=== PATIENT | female | born 1985 | race Caucasian/White ===

== ENCOUNTER 2022-02-24 13:05 | Outpatient (CLI) | payer MEDICAID, SELFPAY ==
[2022-02-24 15:50] LABS: HIV 1/2/P24 Combo Screen* Negative (Negative)
[2022-02-24 15:58] LABS: Hepatitis C Virus Antibody* Negative (Negative)
[2022-02-24 16:21] LABS: Chlamydia DNA Amplified* NOT DETECTED (No Detected); GC DNA Amplified* NOT DETECTED (No Detected)
[2022-02-27 00:45] LABS: Rapid Plasma Reagin (RPR) Reactive (Non Reactive)
[2022-02-28 17:09] LABS: Treponema pallidum AbTP-PA Non Reactive (Non Reactive)
== END 2022-02-24 13:06 | disposition home or self-care (01) ==
PROVIDERS: PCP Family Medicine; Visit Provider Obstetrics & Gynecology
DX: Z01.419 Encounter for gynecological examination (general) (routine) without abnormal findings (principal); Z87.42 Personal history of other diseases of the female genital tract; Z11.3 Encounter for screening for infections with a predominantly sexual mode of transmission
CPT/HCPCS: 86592; 86593; 86703; 86780; 86803; 87491; 87591

== ENCOUNTER 2022-03-06 13:32 | Outpatient (CLI) | payer MEDICAID, SELFPAY ==
--- NOTE | 2022-03-06 13:45 | MR_ITS ---
[address] [address] Phone:?[phone] Fax:?[phone] Referring Physician Information: Tita Campbell [address] [facility] [address] Phone:?[phone] Fax:?[phone] Patient:?Jeny Carter D.O.B:?1985 Sex:?Female Phone:?[phone] [facility] MRN:?[id number] Exam Date:?03/06/2022 ? EXAM: MRI OF THE RIGHT SHOULDER CLINICAL INFORMATION: The patient is a 36-year-old with right shoulder pain. Evaluate rotator cuff. Evaluate biceps. Evaluate for adhesive capsulitis. PRIOR SURGERY: None reported. COMPARISON STUDIES: There are no prior studies available for comparison. TECHNICAL INFORMATION: Using a 1.5T MR scanner and a localizing shoulder surface coil: 3.0 mm?coronal obliques: PD, T2, STIR 3.0 mm?sagittal obliques: PD, T2 3.0 mm?axials: PD, T2 FINDINGS: Articular/Extraarticular collections: Effusion: None. Subacromial/subdeltoid: No evidence for bursitis. Subcoracoid: No evidence for bursitis. Osseous structures: Proximal humerus: No evidence for bony injury to the proximal humerus can be seen. There is no evidence for greater tuberosity fracture. No Hill-Sachs or reverse Hill-Sachs deformity is seen. Glenoid: No acute bony abnormality of the glenoid fossa or glenoid neck can be seen. Acromioclavicular joint: Mild changes of acromioclavicular joint arthrosis are present. Coracoacromial arch: Acromion morphology: Type II. No evidence for os acromiale. Acromiohumeral space: Within normal limits. Coracohumeral space: Within normal limits. Rotator cuff and deltoid: Supraspinatus: Mild changes of supraspinatus tendinosis are present. There is no evidence for full or partial-thickness tearing. No atrophic changes of the supraspinatus muscle belly are identified. Infraspinatus: No evidence for tendinosis, tearing, or associated muscle belly atrophy. Teres minor: No evidence for tendinosis, tearing, or associated muscle belly atrophy. Subscapularis: Mild subscapularis tendinosis can be seen. There is no evidence for full or partial-thickness tearing. No atrophic changes of the subscapularis muscle belly are noted. Deltoid: No evidence for strain or tearing. Biceps tendon: The intra-articular and biceps sulcus portions of the biceps tendon are normal. There is no evidence for rupture, dislocation, or subluxation. Glenohumeral joint and labrum: Articular Cartilage: No chondral injuries along the articular surfaces of the glenohumeral articulation can be seen. No osteoarthritic changes are identified. Labrum: The anterior, posterior, superior, and inferior portions of the labrum appear intact. No evidence for paralabral ganglion cyst formation can be seen. Capsular Soft Tissues: Nonspecific thickening of the capsular structures can be seen in the region of the axillary recess. The findings may relate to changes of adhesive capsulitis. CONCLUSION: 1. Mild supraspinatus and subscapularis tendinosis. No full or partial-thickness rotator cuff tearing is seen. 2. Mild acromioclavicular joint arthrosis. 3. No definite injuries to the glenoid labrum or long head of the biceps can be seen. 4. No osteoarthritic changes of the glenohumeral articulation are present. 5. Nonspecific capsular thickening involving the axillary recess, possibly related to adhesive capsulitis. [facility] Electronically signed on 03/07/2022 7:59:00 AM by Bryce Infante M.D.
== END 2022-03-06 13:33 | disposition home or self-care (01) ==
LOC: MRI 13:33
PROVIDERS: PCP Family Medicine; Visit Provider Physician Assistant
DX: M25.511 Pain in right shoulder (principal); M19.011 Primary osteoarthritis, right shoulder; M75.81 Other shoulder lesions, right shoulder
CPT/HCPCS: 73221

== ENCOUNTER 2022-06-03 10:35 | Outpatient (CLI) | payer MEDICAID, SELFPAY ==
--- NOTE | 2022-06-03 11:00 | CRLHL7_ITS ---
For Patients: As a result of the Century Cures Act, medical imaging exams and procedure reports are released immediately into your electronic medical record. You may view this report before your referring provider. If you have questions, please contact your health care provider. Indication: Sinusitis Technique: Performed without IV contrast Comparison: 09/04/2009 Findings: Frontal sinuses: Clear. Ethmoid sinuses: Clear. Maxillary sinuses: Small mucous retention cyst within the left maxillary sinus. Clear right maxillary sinus. The maxillary sinus drainage pathways are patent on both sides. Sphenoid sinuses: Tiny mucous retention cyst within the left sphenoid sinus. Clear right sphenoid sinus. Patent sphenoethmoidal recesses. Nasal Cavity: Rightward deviation of the nasal septum. Small nonobstructing selam bullosa left middle turbinate. Mild nodularity of the inferior turbinate mucosa. Advanced arthrosis at the right temporomandibular joint. Moderate arthrosis at the left TMJ. The visualized portions of the orbits, intracranial contents and upper soft tissue neck are grossly negative. Impression: 1. Minimal sinus disease. Patent sinus drainage pathways. 2. 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 Please note that all CT scans at this facility use dose modulation, iterative reconstruction, and/or weight-based dosing when appropriate to reduce radiation dose to as low as reasonably achievable. Dictated by David Bro MD @ 06/03/2022 1:01:11 PM (Electronically Signed)
== END 2022-06-03 10:36 | disposition home or self-care (01) ==
LOC: CT 10:35
PROVIDERS: PCP Family Medicine; Visit Provider Otolaryngology
DX: J32.9 Chronic sinusitis, unspecified (principal); M19.09 Primary osteoarthritis, other specified site
CPT/HCPCS: 70486

== ENCOUNTER 2022-09-03 11:00 | Outpatient (CLI) | payer MEDICAID, SELFPAY ==
[2022-09-03 18:11] LABS: Chlamydia DNA Amplified* NOT DETECTED (No Detected); GC DNA Amplified* NOT DETECTED (No Detected)
== END 2022-09-03 11:01 | disposition home or self-care (01) ==
PROVIDERS: PCP Family Medicine; Visit Provider Advanced Practice Midwife
DX: O09.521 Supervision of elderly multigravida, first trimester (principal); Z3A.08 8 weeks gestation of pregnancy
CPT/HCPCS: 84443; 86592; 86703; 86762; 86787; 86803; 86850; 86900; 86901; 87086; 87340; 87491; 87591

== ENCOUNTER 2022-09-04 09:45 | Outpatient (CLI) | payer MEDICAID, SELFPAY | END 2022-09-04 09:46 | disposition home or self-care (01) | LOC: NFLDREF 09-07 13:35 | PROVIDERS: PCP Family Medicine; Referring Provider Family Medicine; Visit Provider Family Medicine | DX: O09.521 Supervision of elderly multigravida, first trimester (principal) | CPT/HCPCS: 87086 ==

== ENCOUNTER 2022-10-21 09:16 | Outpatient (CLI) | payer MEDICAID, SELFPAY ==
--- NOTE | 2022-10-21 09:45 | CRLHL7_ITS ---
For Patients: As a result of the Cures Act, medical imaging exams and procedure reports are released immediately into your electronic medical record. You may view this report before your referring provider. If you have questions, please contact your health care provider. INDICATION: H/O DELIVERY, CHECK CX LENGTH COMPARISON: 09/19/2022 TECHNIQUE: Real time briggs scale imaging of the fetus was performed. FINDINGS: Sonographic imaging demonstrates a single living intrauterine gestation. Fetus demonstrates a regular cardiac rate of 143 beats per minute. Normal amniotic fluid with single deepest pocket 3.6 cm. Cervix is closed with the transvaginal measurement of 4.3 cm. IMPRESSION: Closed cervix without funneling measuring 4.3 cm. Dictated by David Bro MD @ 10/21/2022 10:21:24 AM (Electronically Signed)
== END 2022-10-21 09:17 | disposition home or self-care (01) ==
LOC: US 09:17
PROVIDERS: PCP Family Medicine; Visit Provider Obstetrics & Gynecology
DX: O09.219 Supervision of pregnancy with history of pre-term labor, unspecified trimester (principal)
CPT/HCPCS: 76815; 76817

== ENCOUNTER 2022-11-06 11:55 | Outpatient (CLI) | payer MEDICAID, SELFPAY ==
--- NOTE | 2022-11-06 12:15 | CRLHL7_ITS ---
For Patients: As a result of the Century Cures Act, medical imaging exams and procedure reports are released immediately into your electronic medical record. You may view this report before your referring provider. If you have questions, please contact your health care provider. CLINICAL HISTORY: cervical length check, hx of pre-term delivery. TECHNIQUE: 2D briggs scale and color Doppler images were acquired of the pelvis using a transvaginal approach. FINDINGS: On transvaginal imaging, the cervix is closed without funneling and measures 3.3 cm. heart rate 144 beats per minute. Placenta is anterior and located 5.9 cm from the internal cervical os. IMPRESSION: Closed cervix measuring 3.3 cm. Dictated by David Bro MD @ 11/06/2022 1:20:00 PM (Electronically Signed)
== END 2022-11-06 11:56 | disposition home or self-care (01) ==
LOC: US 11:55
PROVIDERS: PCP Family Medicine; Visit Provider Obstetrics & Gynecology
DX: O09.212 Supervision of pregnancy with history of pre-term labor, second trimester (principal)
CPT/HCPCS: 76817

== ENCOUNTER 2022-11-26 12:32 | Outpatient (CLI) | payer MEDICAID, SELFPAY | END 2022-11-26 12:33 | disposition home or self-care (01) | LOC: NFLDREF 11-27 14:15 | PROVIDERS: PCP Family Medicine; Referring Provider Family Medicine; Visit Provider Obstetrics & Gynecology | DX: O09.212 Supervision of pregnancy with history of pre-term labor, second trimester (principal); O26.899 Other specified pregnancy related conditions, unspecified trimester; B37.31 Acute candidiasis of vulva and vagina; Z3A.20 20 weeks gestation of pregnancy | CPT/HCPCS: 76817; 87086 ==

== ENCOUNTER 2022-12-18 12:15 | Outpatient (CLI) | payer MEDICAID, SELFPAY ==
--- NOTE | 2022-12-18 13:00 | CRLHL7_ITS ---
For Patients: As a result of the Century Cures Act, medical imaging exams and procedure reports are released immediately into your electronic medical record. You may view this report before your referring provider. If you have questions, please contact your health care provider. INDICATION: History of labor COMPARISON: A 3023 TECHNIQUE: Real-time briggs-scale imaging of the pelvis was performed. FINDINGS: Transvaginal measurement of the cervix is 3.5 cm. No funneling. No endocervical fluid. Normal amniotic fluid volume with single deepest pocket 4.5 cm. Breech presentation. heart rate 146 beats per minute. IMPRESSION: Closed cervix measuring 3.5 cm. Dictated by David Bro MD @ 12/19/2022 11:19:49 AM (Electronically Signed)
== END 2022-12-18 12:16 | disposition home or self-care (01) ==
LOC: US 12:16
PROVIDERS: PCP Family Medicine; Visit Provider Obstetrics & Gynecology
DX: O09.529 Supervision of elderly multigravida, unspecified trimester (principal); O09.219 Supervision of pregnancy with history of pre-term labor, unspecified trimester; Z3A.00 Weeks of gestation of pregnancy not specified
CPT/HCPCS: 76816; 76817

== ENCOUNTER 2023-01-15 10:46 | Outpatient (CLI) | payer MEDICAID, SELFPAY | END 2023-01-15 10:47 | disposition home or self-care (01) | LOC: NFLDREF 01-18 16:54 | PROVIDERS: PCP Family Medicine; Referring Provider Family Medicine; Visit Provider Registered Nurse | DX: Z34.92 Encounter for supervision of normal pregnancy, unspecified, second trimester (principal) | CPT/HCPCS: 86592 ==

== ENCOUNTER 2023-01-16 09:50 | Outpatient (CLI) | payer MEDICAID, SELFPAY | END 2023-01-16 09:51 | disposition home or self-care (01) | LOC: RAD 09:51 | PROVIDERS: PCP Family Medicine; Visit Provider Internal Medicine Cardiovascular Disease | DX: R00.2 Palpitations (principal) | CPT/HCPCS: 93225; 93226; 93306 ==

== ENCOUNTER 2023-01-30 12:33 | Outpatient (CLI) | payer MEDICAID, SELFPAY ==
--- NOTE | 2023-01-30 13:00 | CRLHL7_ITS ---
For Patients: As a result of the Century Cures Act, medical imaging exams and procedure reports are released immediately into your electronic medical record. You may view this report before your referring provider. If you have questions, please contact your health care provider. INDICATION: MEASURING SMALL FOR GESTATIONAL AGE COMPARISON: 12/18/2022 TECHNIQUE: Real time briggs scale imaging of the fetus was performed as well as color Doppler and spectral Doppler analysis of the umbilical artery. FINDINGS: Sonographic imaging demonstrates a single living intrauterine gestation. Fetus demonstrates a regular cardiac rate of 139 beats per minute. Fetus has a vertex position. The placenta lies anteriorly. Amniotic fluid volume appears normal and there is a single deepest vertical pocket: 6.4 cm. The estimated weight is 1544gm which lies at the 47th %. BPD 73rd percentile. HC 65th present. AC 54th percentile. FL 25th percentile. The HC/AC ratio measures 1.10 range (0.96-1.18). IMPRESSION: Sonographic gestational age 30 weeks 5 days and sonographic due date 04/05/2023. Sonographic age 5 days ahead of the clinical age. Estimated weight 47th percentile. Abdominal circumference 54th percentile. Dictated by David Bro MD @ 02/03/2023 5:38:52 AM (Electronically Signed)
--- NOTE | 2023-01-30 16:00 | CRLHL7_ITS ---
For Patients: As a result of the Century Cures Act, medical imaging exams and procedure reports are released immediately into your electronic medical record. You may view this report before your referring provider. If you have questions, please contact your health care provider. INDICATION: Left lower extremity varicose veins and pain. COMPARISON: None. TECHNIQUE: A compression venous ultrasound exam was performed of both lower extremities using briggs scale imaging, color Doppler and spectral Doppler analysis. FINDINGS: Right: Sonographic imaging of the right lower extremity demonstrates normal compressibility and color Doppler venous blood flow within the common femoral, femoral, deep femoral, and proximal greater saphenous veins. At a lower level the popliteal, peroneal, and posterior tibial veins also show normal compressibility and color Doppler venous blood flow. Left: Sonographic imaging of the left lower extremity demonstrates normal compressibility and color Doppler venous blood flow within the common femoral, femoral, deep femoral, and proximal greater saphenous veins. At a lower level the popliteal, peroneal, and posterior tibial veins also show normal compressibility and color Doppler venous blood flow. There are patent superficial varicosities in the left groin and left mid thigh. Evaluation of the area of pain inferior to the left knee demonstrates no abnormality. IMPRESSION: 1. Negative for acute DVT in the lower extremities. 2. Patent superficial varicosities in the left groin and left mid thigh. 3. No sonographic abnormality identified in the area of pain inferior to the left knee. Dictated by Josy Orellana MD @ 01/30/2023 5:45:12 PM (Electronically Signed)
== END 2023-01-30 12:34 | disposition home or self-care (01) ==
PROVIDERS: PCP Family Medicine; Visit Provider Obstetrics & Gynecology
DX: O36.5930 Maternal care for other known or suspected poor fetal growth, third trimester, not applicable or unspecified (principal); Z3A.30 30 weeks gestation of pregnancy; I83.892 Varicose veins of left lower extremity with other complications
CPT/HCPCS: 76816; 93970

== ENCOUNTER 2023-03-13 11:44 | Outpatient (CLI) | payer MEDICAID, SELFPAY ==
--- NOTE | 2023-03-13 12:15 | CRLHL7_ITS ---
For Patients: As a result of the Cures Act, medical imaging exams and procedure reports are released immediately into your electronic medical record. You may view this report before your referring provider. If you have questions, please contact your health care provider. INDICATION: Encounter for supervision of normal TECHNIQUE: Real time briggs scale imaging of the fetus was performed. COMPARISON: 01/30/2023 FINDINGS: Sonographic imaging demonstrates a single living intrauterine gestation. Fetus demonstrates a regular cardiac rate of 157 beats per minute. Fetus has a vertex position. The placenta lies anteriorly. Amniotic fluid volume appears decreased and there is a single deepest pocket of 1.2 cm. WILBUR 3.0 cm. The estimated weight is 2596gm which lies at the 27th %. On the prior OB ultrasound dated 01/30/2023 the estimated weight was at the 47th percentile. BPD 66th percentile. HC 56th percentile. AC 30th percentile. FL 7th percentile. The fetus was active and demonstrated normal breathing movements. There was normal flexion and extension of the trunk and extremities. IMPRESSION: Biophysical profile 09/04. Oligohydramnios. Sonographic gestational age 35 weeks 5 days and sonographic due date 04/12/2023. Good correlation with dates. Estimated weight 27th percentile. Abdominal circumference 30th percentile. Dictated by David Bro MD @ 03/13/2023 1:31:34 PM (Electronically Signed)
== END 2023-03-13 11:45 | disposition home or self-care (01) ==
LOC: US 11:44
PROVIDERS: PCP Family Medicine; Visit Provider Obstetrics & Gynecology
DX: O09.523 Supervision of elderly multigravida, third trimester (principal); Z3A.35 35 weeks gestation of pregnancy
CPT/HCPCS: 76816; 76819

== ENCOUNTER 2023-03-13 15:21 | Inpatient (IN) | payer MEDICAID, SELFPAY ==
[2023-03-13] VITALS (28 sets, daily range): BP systolic 95–127; BP diastolic 51–71; PULSE 69–122; RESP 16–18; TEMP 36.6–36.8; O2SAT 94–98
--- NOTE | 2023-03-13 16:01 | W.PM.LDBA ---
Subjective History of Present Illness Time Seen by Provider: 16:50 Date Seen: 03/13/23 Narrative: Patient is being admitted to Labor and Delivery for induction of labor secondary to oligohydramnios. She is a 37 year old at 36 0/7 weeks gestation. Her full history and physical was dictated by Dr. Govea earlier today. Please see that note for details. At her clinic visit, she stated that she had an upper respiratory infection last week and had alot of forceful coughing on Thursday and over the weekend which made her pee her pants, causing her to need to change her clothing 7-10 times per day. She didn't think that her water had broken and denied any contractions or leakage of fluid without cough. Ultrasound today showed the following: Sonographic imaging demonstrates a single living intrauterine gestation. Fetus demonstrates a regular cardiac rate of 157 beats per minute. Fetus has a vertex position. The placenta lies anteriorly. Amniotic fluid volume appears decreased and there is a single deepest pocket of 1.2 cm. WILBUR 3.0 cm. The estimated weight is 2596gm which lies at the 27th %. On the prior OB ultrasound dated 01/30/2023 the estimated weight was at the 47th percentile. BPD 66th percentile. HC 56th percentile. AC 30th percentile. FL 7th percentile. The fetus was active and demonstrated normal breathing movements. There was normal flexion and extension of the trunk and extremities. IMPRESSION: Biophysical profile 09/04. Oligohydramnios. Specific Issues/Plans H&P by M on 03/13/23 1. AMA -declines genetic screening -Level II u/s: 11/12/22: Normal anatomy 2.Hx of at 32 weeks following SROM with 2nd child. -Cervical length measurements every 2 weeks starting at 16 weeks, F/U additional recommendations by M - Cervical length 10/21/22: 4.3 cm - Cervical length 11/26/22: 3.5 cm -Cervical length 12/18/22: 3.5 cm 3. Mental health hx: SAD, Anxiety, ADHD, bipolar -Currently has a therapist, but declines to take medication. (Has previously). Uses a sun lamp 4. Smoker, 8-20 cigs/day -Trying to cut down, not ready to quit 09/23/22 - Continuous to try to cut down 10/21/22 5. Hx of Seizure disorder/ Vertigo -per pt: stress and anxiety induced tremors that present similar to a seizure. Happens when she is sleeping, does not take any medication for it. -Episodes of vertigo, dizzinnes that she described LOC: Neurology and cardiology referral ordered 10/21/22 6. Scoliosis -epidurals have taken multiple attempts -Anesthesia referral in 3rd trimester 7. Asthma -has rescue inhaler, used recently w/ current air quality and it flares with allergies 8. GERD -has prescription for nexium 9. Hx of MRSA -cleared previously 10. Hx of a LEEP - for CIN3 -Paps in 2017 and 2020 NIL, negative HPV 11. Hx of syphilis, treated -RPR at [facility] neg 12. Does not have custody of first 3 children. Per her, first was kidnaped by the FOB, and he was allowed to keep her. Next 2 (foster?) adopted out when she was homeless/no steady source of income. Not in a relationship with FOB, though he is still around and supportive. Does maintain a intimate relationship with him 13. Father has breast cancer - Unsure if her father had a genetic work up. Thought to be due to asbestosis?? - Did not follow upon genetic referral - HIGHLY recommend she has genetic evaluation 14. Bothersome varicose veins - Negative LLU on 01/30/2023 COVID: declines Flu: declines TDAP: 01/31/23 RSV: 32wk Mental Health: 02/12/2023 OB - Problem Based A/P Additional Plan (1) Oligohydramnios: Status: Acute Plan 1. Would recommend induction of labor due to oligohydramnios. Continuous monitoring during induction and labor and delivery. Unfavorable cerivx currently, so will proceed with misoprostol cervical ripening per protocol. 2. GBS status pending, results will be available in 18 hours per lab. As there is currently no sign of ruptured membranes (exam and amnisure negative), no labor, no history of infant with GBS infection, or signs/symptoms of infection, there is no indication to start GBS prophylaxis at this time. 3. Discussed potential risks of prematurity of infant. Risks associated with oligohydramnios outweigh these small risks. 4. Patient plans epidural for pain management during active labor. 5. Patient plans to breast feed. Does not yet have a breast pump. Will need a prescription for an electric breast pump for home use at discharge. Delivery/Labor/Induction Plan Plan: induction Induction method: per misoprostol protocol OB Result Labs Blood Type: O (+) positive Rubella: immune RPR/VDLR: nonreactive GBS Status: unknown (GBS test pending) HBsAG: negative OB Exam Physical Exam Vital signs: Temp Pulse Resp BP Pulse Ox 98.1 F 78 16 121/71 94 03/13/23 15:37 03/13/23 15:37 03/13/23 15:37 03/13/23 15:37 03/13/23 15:35 Detailed Labor and Delivery Exam Patient Gravid: Yes Dilation (cm): 1 Effacement (%): 20 Cervix position: posterior Consistency: medium Contraction Frequency: None Comments: Cervical exam per nursing staff. No pooling. Fetus (Single) Station: -1 Amniotic Membrane Status: intact (Amnisure negative) Heart Rate Baseline: 140 Monitor Accelerations: Present Monitor Decelerations: None Long-Term Variability: Moderate (6-25)
[2023-03-13 16:16] LABS: Amnisure Rom* Negative
[2023-03-13 16:21] LABS: Hemoglobin* 12.6 gm/dL (12.0-16.0); Immature Granulocytes Pct Auto 2.2 %; Lymphocytes Percent Auto 11.8 % (20-44); Mean Corpuscular HGB Conc 33 gm/dL (32-36); Mean Corpuscular Hemoglobin 33 pg (26-34); Mean Corpuscular Volume 98 fL (80-100); Platelet Count* 252 K/uL (140-440); RDW Coefficient of Variation % 12.1 % (11.5-15.5); Red Blood Count 3.88 m/uL (4.00-5.20); White Blood Count* 15.88 K/uL (4.50-11.00)
[2023-03-13 16:34] LABS: Slide Review Reflex No
[2023-03-13] MEDS: miSOPROStoL 25 MCG/0.25 TABLET VAGINAL ×2 (17:10→20:21)
[2023-03-13 17:30] LABS: Alanine Aminotransferase* 18 U/L (4-35); Aspartate Amino Transferase* 21 U/L (12-35); Blood Urea Nitrogen* 12 mg/dL (5-24); Creatinine* 0.5 mg/dL (0.5-1.5); Estimated Glomerular Filt Rate 124 ml/min
[2023-03-13 17:40] LABS: Total Protein Urine 7 mg/dL
[2023-03-13 17:42] LABS: Creatinine Urine 24.3 mg/dL
[2023-03-13] MEDS: LACTATED RINGERS 1000 ML 1,000 ML IV (21:45)
[2023-03-13] MEDS: ROPIVACAINE 0.2% 100 ml 100 ML 12 MG EPIDURAL (22:48)
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
[2023-03-13] MEDS: PHENYLEPHRINE 100 MCG/ML SYRINGE IVP ×3 (23:28→23:57)
[2023-03-14] VITALS (76 sets, daily range): BP systolic 86–152; BP diastolic 50–82; PULSE 61–98; RESP 16–18; TEMP 36.6–37.3; O2SAT 95; BMI 25.9
[2023-03-14] MEDS: LACTATED RINGERS 1000 ML 1,000 ML 500 ML IV (00:15)
[2023-03-14] MEDS: PHENYLEPHRINE 100 MCG/ML SYRINGE IVP ×2 (02:32→07:08)
[2023-03-14] MEDS: ePHEDrine sulfate 5 MG/ML inj 10 MG IVP (02:47)
[2023-03-14] MEDS: ONDANSETRON 2 MG/ML inj 4 MG IV (03:24)
--- NOTE | 2023-03-14 03:35 | PM.OBPNL ---
Subjective Time Seen by Provider: 03:35 Date Seen: 03/14/23 Narrative: Patient complains of discomfort, despite epidural. Currently, pain is located in her back with contractions. She also complains of nausea. She states that her pain was improved initially following epidural placement, but that it has increased again since 1:30 am. Still has a significant motor block. Has received 2 doses of vaginal misoprostol. Objective Vital Signs: Last Vital Signs Temp 98.3 F 03/14/23 02:30 Pulse 75 03/14/23 03:24 Resp 18 03/14/23 02:30 BP 121/59 L 03/14/23 03:24 Pulse Ox 97 03/13/23 22:56 Pelvic Exam Dilation (cm): 3 Effacement (%): 60 Station: -1 Comments: vertex position OP. Contractions Monitor mode: External Contraction Frequency: q1-3 minutes Contraction pattern: Irregular Contraction intensity: Moderate Assessment Assessment: induction ongoing Station: -1 Status: Category l Heart Rate Baseline: 140 [facility] Variability: Moderate (6-25) Monitor Accelerations: Present Monitor Decelerations: None Plan Plan: Patient given Zofran for neasea. Will check with N[facility] SETTER regarding epidural bolus. Maternal positioning to affect rotation. Consider beginning pitocin if contractions space.
[2023-03-14] MEDS: hydrOXYzine pamoate 25 MG CAPSULE 100 MG PO (03:43)
[2023-03-14] MEDS: LIDOCAINE 2% (PF) 5 ML VIAL EPIDURAL (03:55)
[2023-03-14] MEDS: ROPIVACAINE 0.2% 100 ml 100 ML 14 MG EPIDURAL ×2 (05:35→11:49)
[2023-03-14] MEDS: LACTATED RINGERS 1000 ML 1,000 ML 125 ML IV ×2 (05:45→11:41)
[2023-03-14] MEDS: OXYTOCIN 30 unit/500 ML in NS 30 UNIT/500 ML BAG IVPB (07:04)
--- NOTE | 2023-03-14 10:58 | PM.OBPNL ---
Subjective Date Seen: 03/14/23 Narrative: Jeny is a 37 yo now at 36 1/7 weeks' gestation here for IOL for oligohydramnios. She has had two doses of vaginal cytotec, followed by pitocin. She received an epidural in the middle of the night last night. Objective Vital Signs: Last Vital Signs Temp 98 F 03/14/23 09:07 Pulse 74 03/14/23 10:53 Resp 16 03/14/23 09:07 BP 104/59 L 03/14/23 10:53 Pulse Ox 97 03/13/23 22:56 Comments: Gen - sleeping when I enter Abd - soft, tender to palpation, gravid, cephalic Cervix - 4 / 100 / -1 AROM for scant fluid Pelvic Exam Dilation (cm): 4 Effacement (%): 10 Station: -1 Comments: midposition, soft Contractions Monitor mode: External Contraction Frequency: erratic, lots of apparent irritability Contraction pattern: Irregular Contraction intensity: Moderate Pitocin Rate (mU/min): 7 Assessment Assessment: early labor Station: -1 Amniotic Membrane Status: AROM Status: Category ll Heart Rate Baseline: 145 [employer] Variability: Moderate (6-25) Monitor Accelerations: Present Monitor Decelerations: Variable Tracing Comments: One brief variable in last 30 min. Reassuring tracing. Labor Progress: Progressing through stage I, early labor Maternal Status: Stable Plan Plan: Continue pitocin augmentation. Continuous monitoring. Anticipate .
[2023-03-14 12:08] LABS: Strep B DNA Probe Negative (Negative); Strep B Susceptibility Needed? No
--- NOTE | 2023-03-14 13:13 | W.PM.VAGDEL1 ---
Procedure Delivery date: 03/14/23 Procedure Done: Global Procedure Details: The patient is a 37 year-old G 8 P 4-0-2-5 woman admitted on 03/13/2023 at 36 Weeks, 0 Days gestation for induction of labor for indication of oligohydramnios.? Cervical exam on admission was unfavorable.? She was not nathalia.? status was reassuring. She had cervical ripening with a total of 2 doses of vaginal misoprostol, and subsequently went into labor. AROM occurred at 11:10 a.m. on 03/14/2023 with very scant clear fluid. ? Labor Analgesia:? Epidural ? Pitocin:? Yes ? Labor onset:? 12:30 p.m. ? Complete:? 12:34 p.m. ? Pushing:? 12:40 p.m. ? heart tones during second stage were reassuring. ? At 12:56 p.m. a viable male delivered in vertex GLENN presentation over intact perineum via spontaneous vaginal delivery.? Infant was placed on maternal abdomen.? Cord was clamped and cut after a 30-60 second delay.? Nose and mouth were bulb suctioned.? Infant weight pending.? 8 at 1 minute and 9 at 5 minutes.? Shoulder dystocia: No.? Nuchal cord: No. ? Placenta delivered spontaneously and complete at 12:58 p.m. with a 3 vessel cord. ? Mother and were stable after delivery. ? Lacerations:? None Blood loss: 25 mL. Blood loss measurement type: QBL ? Sponge and needles counts are correct. Events: Oligohydramnios Intrapartal Events: Labor Augmentation and Labor Induction Delivery augmentation: rupture of membranes and pitocin Delivery monitor: external FHT Route of delivery: Episiotomy description: None Laceration description: None
[2023-03-14] MEDS: NON-FORMULARY MEDICATION PO (19:00)
[2023-03-14] MEDS: NON-FORMULARY MEDICATION TOPICAL (19:00)
[2023-03-14] MEDS: FLUTICASONE PROPIONATE NASAL 1 SPRAY NOSTRIL-B (19:00)
[2023-03-15 00:57] VITALS: BP 100/63; PULSE 65; RESP 16; TEMP 36.5; O2SAT 95
[2023-03-15 03:40] VITALS: BP 99/62; PULSE 59; RESP 16; TEMP 36.8; O2SAT 95
[2023-03-15 06:56] LABS: Hemoglobin* 13.2 gm/dL (12.0-16.0)
--- NOTE | 2023-03-15 07:35 | PM.ANPOST ---
Post Anesthesia Note Post Anesthesia Note Patient seen: Inpatient Respiratory Status: adequate Cardiovascular Status: adequate Mental Status: baseline Pain: adequate Temp: baseline Anesthetic awareness: N/A Complications: none Follow care: none
[2023-03-15 07:56] VITALS: BP 115/80; PULSE 64; RESP 16; TEMP 36.5
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
[2023-03-15 12:50] VITALS: BP 123/76; PULSE 64; RESP 16; TEMP 36.4
--- NOTE | 2023-03-15 13:04 | P.DS_ITS ---
DS: Providers Provider Date Seen: 03/15/23 Date of admission: 03/13/23 15:21 Primary care physician: David Baum MD Admitting Clinician: Wendy Guaman MD Attending Physician on discharge: Nancy Dickerson MD Date of Discharge: 03/15/23 DS: Diagnosis Discharge Diagnosis (1) (normal spontaneous vaginal delivery): Status: Acute (2) Oligohydramnios: Status: Acute Exam Narrative: Exam Narrative: General: Pleasant, no acute distress Heart: Regular rate and rhythm, no murmur or gallop Lungs: Clear to auscultation bilaterally Abdomen: Soft, nontender, fundus well below umbilicus Lower extremities: No edema or erythema Const: Vital Signs, click to edit/add: Vital Signs - 24 hr 03/14/23 13:08 03/14/23 13:08 03/14/23 13:24 Temperature Pulse Rate 74 75 Pulse Rate [Blood Pressure Cuff] Respiratory Rate 16 Blood Pressure 104/52 L 109/58 L Blood Pressure [Ri ght Arm] Pulse Oximetry Oxygen Delivery Me thod 03/14/23 13:24 03/14/23 13:38 03/14/23 13:38 Temperature Pulse Rate 72 Pulse Rate [Blood Pressure Cuff] Respiratory Rate 16 16 Blood Pressure 111/56 L Blood Pressure [Ri ght Arm] Pulse Oximetry Oxygen Delivery Me thod 03/14/23 13:53 03/14/23 13:53 03/14/23 14:08 Temperature Pulse Rate 70 71 Pulse Rate [Blood Pressure Cuff] Respiratory Rate 16 Blood Pressure 118/59 L 115/60 Blood Pressure [Ri ght Arm] Pulse Oximetry Oxygen Delivery Me thod 03/14/23 14:08 03/14/23 14:23 03/14/23 14:23 Temperature 98.5 F Pulse Rate 68 Pulse Rate [Blood Pressure Cuff] Respiratory Rate 16 16 Blood Pressure 116/60 Blood Pressure [Ri ght Arm] Pulse Oximetry Oxygen Delivery Me thod 03/14/23 14:38 03/14/23 14:38 03/14/23 17:42 Temperature Pulse Rate 74 Pulse Rate [Blood Pressure Cuff] Respiratory Rate 16 Blood Pressure 125/62 115/56 L Blood Pressure [Ri ght Arm] Pulse Oximetry Oxygen Delivery Me thod 03/14/23 17:42 03/14/23 17:42 03/14/23 19:23 Temperature 98.3 F 99.2 F Pulse Rate 71 Pulse Rate [Blood Pressure Cuff] 71 74 Respiratory Rate 16 16 Blood Pressure Blood Pressure [Ri ght Arm] 115/56 L 136/82 Pulse Oximetry 95 Oxygen Delivery Me thod Room Air 03/15/23 00:57 03/15/23 03:40 03/15/23 07:56 Temperature 97.7 F 98.3 F 97.7 F Pulse Rate Pulse Rate [Blood Pressure Cuff] 65 59 L 64 Respiratory Rate 16 16 16 Blood Pressure Blood Pressure [Ri ght Arm] 100/63 99/62 115/80 Pulse Oximetry 95 95 Oxygen Delivery Me thod Room Air Room Air Room Air 03/15/23 12:50 Temperature 97.6 F Pulse Rate Pulse Rate [Blood Pressure Cuff] 64 Respiratory Rate 16 Blood Pressure Blood Pressure [Ri ght Arm] 123/76 Pulse Oximetry Oxygen Delivery Me thod Room Air OB - DS: Summary Hospital Course Hospital Course: Jeny is a 37 yo G8 now P5-1-2-6 woman who is status post normal spontaneous vaginal delivery on 03/14/2023 = 36 weeks, 1 day, after induction of labor for oligohydramnios. Ob problem list: 1. AMA -declines genetic screening -Level II u/s: 11/12/22: Normal anatomy 2.Hx of at 32 weeks following SROM with 2nd child. -Cervical length measurements every 2 weeks starting at 16 weeks, F/U additional recommendations by MFM - Cervical length 10/21/22: 4.3 cm - Cervical length 11/26/22: 3.5 cm -Cervical length 12/18/22: 3.5 cm 3. Mental health hx: SAD, Anxiety, ADHD, bipolar -Currently has a therapist, but declines to take medication. (Has previously). Uses a sun lamp 4. Smoker, 8-20 cigs/day -Trying to cut down, not ready to quit 09/23/22 - Continuous to try to cut down 10/21/22 5. Hx of Seizure disorder/ Vertigo -per pt: stress and anxiety induced tremors that present similar to a seizure. Happens when she is sleeping, does not take any medication for it. -Episodes of vertigo, dizzinnes that she described LOC: Neurology and cardiology referral ordered 7/25/23 6. Scoliosis -epidurals have taken multiple attempts -Anesthesia referral in 3rd trimester 7. Asthma -has rescue inhaler, used recently w/ current air quality and it flares with allergies 8. GERD -has prescription for nexium 9. Hx of MRSA -cleared previously 10. Hx of a LEEP - for CIN3 -Paps in 2017 and 2020 NIL, negative HPV 11. Hx of syphilis, treated -RPR at [facility] neg 12. Does not have custody of first 3 children. Per her, first was kidnaped by the FOB, and he was allowed to keep her. Next 2 (foster?) adopted out when she was homeless/no steady source of income. Not in a relationship with FOB, though he is still around and supportive. Does maintain a intimate relationship with him 13. Father has breast cancer - Unsure if her father had a genetic work up. Thought to be due to asbestosis?? - Did not follow upon genetic referral - HIGHLY recommend she has genetic evaluation 14. Bothersome varicose veins - Negative LLU on 01/30/2023 She had an uncomplicated vaginal delivery. She delivered a viable male infant. She is breast feeding. the patient has done well. Vital signs have been normal. Today, on day 1, she denies any pain. She reports minimal bleeding. She is without difficulty. She is ambulating and urinating without difficulty. She requests discharge today. Her son will have car seat test this afternoon, and this will determine disposition. She does desire 2 week visit with a physician. Time spent discussing smoking cessation with patient: 3 to 10 minutes Gender: Male Time Spent with Patient Time attestation: Total time spent providing and/or coordinating discharge services: Discharge Plan Discharge Disposition: Home, Self-Care Date of Admission: 03/13/23 15:21 Attending Provider on Discharge: Nancy Dickerson Primary Care Provider: David Baum Condition: Stable Anticipated Discharge Date/Time: 03/15/23 13:07 Discharge Medications: New acetaminophen 500 mg Tablet 1,000 mg PO Q6H PRNQty: 0 0RF Lanolin (HPA) 100 % Cream 1 applic topical Q1H PRNQty: 0 0RF Continued meclizine 12.5 mg tablet 12.5 mg PO PRN PRN (DME) Test Strips Misc See Rx Instructions .MEDSUPPLY Qty: 100 0RF Rx Instructions: Test blood sugar 4 times daily. (DME) lancets Misc See Rx Instructions .MEDSUPPLY Qty: 100 0RF Rx Instructions: Test blood sugar 4 times daily. (DME) Blood Glucose Meter Misc See Rx Instructions .MEDSUPPLY Qty: 1 0RF Rx Instructions: dispense 1 meter prednisone 20 mg tablet 40 mg PO QDAY Qty: 10 0RF albuterol sulfate [Ventolin HFA] 90 mcg/actuation HFA aerosol inhaler 2 puff inhalation Q4H PRN Patient Comments: INHALE 2 PUFFS BY MOUTH EVERY 4 HOURS NEEDED FOR SHORTNESS OF BREATH OR WHEEZING naproxen 250 mg tablet 500 mg PO BID PRN PNV #[id number] 30 mg iron-10 mg iron-1 mg capsule 1 cap PO DAILY fluticasone propionate 50 mcg/actuation spray,suspension 2 spray intranasal QDAY 30 Days Qty: 16 11RF Rx Instructions: administer into each nostril epinephrine 0.3 mg/0.3 mL auto-injector 0.3 ml IM ONCE PRN (Reason: anaphylaxis) Qty: 2 2RF esomeprazole magnesium [Nexium] 40 mg capsule,delayed release(DR/EC) 40 mg PO QDAY Qty: 90 3RF clindamycin phosphate 1 % solution 1 applic topical QDAY Qty: 60 5RF Discharge Orders: Discharge Order (Routine); Ordered 03/15/23 Ordered By: Nancy Dickerson Patient Education: OB Vaginal/Breast Feeding Additional Instructions: Discharge instructions were reviewed with the patient including signs and symptoms of infection and home going medications Nothing vaginally for 6 weeks: no tampons or intercourse Do not drive while taking narcotic pain medication(s) Off Work or School for 8 weeks Symptoms to report to doctor: * Bleeding that saturates more than one pad per hour * Passing clots larger than the size of a golf ball * Pain not relieved by prescribed medication * Fever above 100.4 degrees Fahrenheit * A foul vaginal odor * Difficulty in emotions, mood, and functions * Thoughts of hurting yourself and/or * Painful, reddened area in your breast * Any drainage, redness, or tenderness in your IV/epidural site * Severe headache that doesn't improve after taking medications * Changes in vision, including temporary loss of vision, blurred vision, and/or light sensitivity * Upper abdominal pain (usually under ribs on the right side) * Decrease in urination or painful, frequent urinating * Chest pain * Shortness of breath * Tenderness or pain with redness and/swelling in the calf(s) of your leg Optional 2-week visit: discuss infant feeding concerns, review control options and screen for anxiety/depression. 6-week visit for an annual exam. consultation services are available to all mothers and babies for the first year after delivery.? To make an appointment, please call [phone]. Activity Level: No Restrictions Discharge Diet: Regular Follow Up Appointments: David Baum MD [Primary Care Provider] - Nancy Dickerson MD [Staff Physician] - Forms: [employer] Info Instructions Discharge Comments: Follow up with MD per patient request at 2 and 6 weeks. Desires Depo Provera for contraception at 2 week visit. DS:Data Additional Comments Additional comments: Hemoglobin 13.2 today
== END 2023-03-15 16:10 | disposition home or self-care (01) | DRG 807 ==
PROVIDERS: Obstetrics & Gynecology; Admitting Provider Obstetrics & Gynecology; PCP Family Medicine; Visit Provider Obstetrics & Gynecology
DX: O41.03X0 Oligohydramnios, third trimester, not applicable or unspecified (principal); Z37.0 Single live birth; O99.334 Smoking (tobacco) complicating childbirth; F17.210 Nicotine dependence, cigarettes, uncomplicated; O99.344 Other mental disorders complicating childbirth; F41.9 Anxiety disorder, unspecified; F31.9 Bipolar disorder, unspecified; F90.9 Attention-deficit hyperactivity disorder, unspecified type; M41.9 Scoliosis, unspecified; Z3A.36 36 weeks gestation of pregnancy
CPT/HCPCS: 01967; 36415; 59200; 82565; 82570; 84112; 84156; 84450; 84460; 84520; 85018; 85025; 86850; 86900; 86901; 87081; 87653; 88307; A9270; J2371; J2405; J2795; J7120; S0020

== ENCOUNTER 2023-04-28 13:21 | Outpatient (CLI) | payer MEDICAID, SELFPAY ==
--- OUTSIDE RECORDS SUMMARY | 2023-04-28 13:24 | XMS_ITS | Referral Summary ---
Author Name Unknown Organization [facility] Address [address] [place] [id number] Care Team Providers Care Etymology Teacher Name Role Phone No Ref-Primary, Physician Primary Care Provider System, Provider Not In Unavailable Unavaila ble Social History Tobacco Use Types Packs/Day Years Used Date Smoking Tobacco: Never Assessed Adolescent Education Answer Date Record ed Getting School Help Needed Not on file 12/20 Estimated Date of Delivery Comme nts Yes 04/10/2023 Based on last me nstrual period of 07/04/2022 Sex and Gender Information Value Date Recorded Sex Assigned at Not on file Gender Identity Not on file Sexual Orientation Not on file Plan of Treatment Not on file Care Teams Etymology Teacher Relationship Specialty Start Date End Date No Ref-Primary, Physician PCP - General 03/07/22 System, Provider Not In Clinic 03/07/22
--- OUTSIDE RECORDS SUMMARY | 2023-04-28 13:24 | XMS_ITS | Clinical Summary ---
Author Name Unknown Organization [facility] Address [address] [place] [id number] Care Team Providers Care Electrical Instrument Repairer Name Role Phone No Ref-Primary, Physician Primary [...] Orientation Not on file Plan of Treatment Health Maintenance Due Date Last Done Comments ADVANCE CARE PLANNING 1985 ANNUAL REVIEW OF HM ORDERS 1985 YEARLY PREVENTIVE VISIT 1985 COVID-19 Vaccine (#1) 03/01/1986 PAP 2006 MATERNAL SCREENING DISCUSSION 09/12/2022 INFLUENZA VACCINE (#1) 2022 [facility] (OB) 12/19/2022 GROUP B STREP SCREENING 03/13/2023 PHQ-2 (once per calendar year) 2023 DTAP/TDAP/TD IMMUNIZATION (4 - Td or Tdap) 01/04/2024 01/03/2014, 01/11/2007, 07/12/1998 HEPATITIS B IMMUNIZATION Completed 000, 10/10/1999, 01/23/1998, Additional history exists Pneumococcal Vaccine: Pediatrics (0 to 5 Years) and At-Risk Patients (6 to 64 Years) Aged Out 02/03/2012 No longer eligible based on patient's age to complete this topic HEPATITIS C SCREENING Completed 09/03/2022, 022 HIV SCREENING Completed 09/03/2022, 02/24/2022 HPV IMMUNIZATION Aged Out No longer e ligible based on patient's age to complete this topic IPV IMMUNIZATION Aged Out No longer e ligible based on patient's age to complete this topic MENINGITIS IMMUNIZATION Aged Out No l onger eligible based on patient's age to complete this topic RSV MONOCLONAL ANTIBODY Aged Out No l onger eligible based on patient's age to complete this topic RSV VACCINE ( & 60+) (No Doses Required) Completed Care Teams Electrical Instrument Repairer Relationship Specialty Start Date End Date No Ref-Primary, Physician PCP - General 03/07/22 System, Provider Not In Clinic 03/07/22
--- OUTSIDE RECORDS SUMMARY | 2023-04-28 13:24 | XMS_ITS | Encounter Summary ---
Author Name Unknown Organization [facility] Address [address] [place] [address] Care Team Providers Care Desk Assistant Name Role Phone No Ref-Primary, Physician Primary Care Provider System, Provider Not In Unavailable Unavaila ble Reason for Visit * Reason Onset Date Comments Appointment 09/20/2022 Encounter Details Date Type Department Care Team (Late st Contact Info) Description 09/20/2022 Telephone [facility] [address] [place] [address] Yolanda Morales, RN Appointment Social History Tobacco Use Types Packs/Day Years Used Date Smoking Tobacco: Never Assessed Sex and Gender Information Value Date Recorded Sex Assigned at Not on file Gender Identity Not on file Sexual Orientation Not on file documented as of this encounter Miscellaneous Notes * Telephone Encounter - Yolanda Morales RN - 09/20/2022 8:08 AM CDT Images from the original note were not included. Triage Call: Caller: Patient 3 months and was in the ER due to excessive bleeding. She was in the ER in [facility]. She was told to be off of work until being seen with OB provider. She isn't sure if the ER provider's note will work and isn't sure what to do. She is wondering about an urgent OB appointment. Tx call to [facility] OB clinic line: as we don't triage OB patients for this location. Yolanda Morales RN on 09/20/2022 at 8:09 AM documented in this encounter Plan of Treatment Not on file documented as of this encounter Visit Diagnoses Not on filedocumented in this encounter Care Teams Desk Assistant Relationship Specialty Start Date End Date No Ref-Primary, Physician PCP - General 03/07/22 System, Provider Not In Clinic 03/07/22 documented as of this encounter
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
--- OUTSIDE RECORDS SUMMARY | 2023-04-28 13:24 | XMS_ITS | Encounter Summary ---
Author Name Unknown Organization [employer] Address [address] [place] [address]. [place] [address] Care Team Providers Care Media Services Specialist Name Role Phone No Ref-Primary, Physician Primary Care Provider System, Provider Not In Unavailable Unavaila ble Encounter Details Date Type Department Care Team (Late st Contact Info) Description 09/23/2022 Medical Correspondence [facility] [address] [place] [phone] Outside, Provider Social History Tobacco Use Types Packs/Day Years Used Date Smoking Tobacco: Never Assessed Sex and Gender Information Value Date Recorded Sex Assigned at Not on file Gender Identity Not on file Sexual Orientation Not on file documented as of this encounter Plan of Treatment Not on file documented as of this encounter Visit Diagnoses Not on filedocumented in this encounter Care Teams Media Services Specialist Relationship Specialty Start Date End Date No Ref-Primary, Physician PCP - General 03/07/22 System, Provider Not In Clinic 03/07/22 documented as of this encounter
--- OUTSIDE RECORDS SUMMARY | 2023-04-28 13:24 | XMS_ITS | Encounter Summary ---
Author Name Unknown Organization [facility] Address [address] [place] [address] Care Team Providers Care Program Trainer Name Role Phone No Ref-Primary, Physician Primary Care Provider System, Provider Not In Unavailable Unavaila ble Reason for Referral * Consultation (Routine: Next available opening) - Pending Review Specialty Diagnoses / Procedures Referred By Yuniel t Referred To Contact Diagnoses related condition, antepartum Akiko Govea MD [address] [place] [id number] [facility] [address] [place] [address] Referral ID Status Reason Start Date Expiration Date V isits Requested Visits Authorized Pending Review 09/24/2022 09/24/2023 1 1 Question Answer Preferred Location: [facility] [place] 04/10/2023 Ultrasound Comprehensive US (>than 18 weeks GA) US PROC NONE MFM Issue OTHER (enter details in Comments) - AMA, Hx of PTL SUAD CAMARILLO Consultation (unrelated to Ultrasound findings): No Inflammatory Bowel Disease Clinic: Joint MFM and GI Consultation: No Chronic Kidney Disease: Joint MFM and Nephrology Consultation No Genetic Counseling Consultation: Yes fax [facility] Bella Govea [phone] Comments AMA, Hx of PTL Encounter Details Date Type Department Care Team (Latest Contact Info) Description 09/24/[address] [facility] [place] [address] [facility] [address] [place] [address] Akiko Govea MD [address] [place] [address] related condition, antepartum (Primary Dx) Social History Tobacco Use Types Packs/Day Years Used Date Smoking Tobacco: Never Assessed Sex and Gender Information Value Date Recorded Sex Assigned at Not on file Gender Identity Not on file Sexual Orientation Not on file documented as of this encounter Plan of Treatment Scheduled Referrals Name Type Priority Associated Diagnoses Orde r Schedule Mat Med Ctr Referral - Referral Routine: Next available opening related condition, antepartum Expected: 09/24/2022 (Approximate), Expires: 03/23/2023 documented as of this encounter Visit Diagnoses Diagnosis related condition, antepartum- Primary documented in this encounter Care Teams Program Trainer Relationship Specialty Start Date End Date No Ref-Primary, Physician PCP - General 03/07/22 System, Provider Not In Clinic 03/07/22 documented as of this encounter
--- OUTSIDE RECORDS SUMMARY | 2023-04-28 13:24 | XMS_ITS | Encounter Summary ---
Author Name Unknown Organization [facility] Address [address] [place] [address] Care Team Providers Care Tow Boat Captain Name Role Phone No Ref-Primary, Physician Primary Care Provider System, Provider Not In Unavailable Unavaila ble Reason for Referral * Diagnostic Imaging Ultrasound (Routine) - Pending Review Specialty Diagnoses / Procedures Referred By Contac t Referred To Contact Radiology. Diagnoses related condition, antepartum Procedures [facility] US Comprehensive Akiko Hartmann MD [address] [place] [address] Referral ID Status Reason Start Date Expiration Date V isits Requested Visits Authorized Pending Review 09/24/2022 09/24/2023 1 1 Reason for Visit * Diagnostic Imaging Ultrasound (Routine) - Pending Review Specialty Diagnoses / Procedures Referred By Contac t Referred To Contact Radiology. Diagnoses related condition, antepartum Procedures [facility] Comprehensive Akiko Hartmann MD [address] [place] [address] Referral ID Status Reason Start Date Expiration Date V isits Requested Visits Authorized Pending Review 09/24/2022 09/24/2023 1 1 Encounter Details Date Type Department Care Team (Latest Contact Info) Description 11/12/2022 11:00 AM CDT - 11/12/2022 11:59 PM CDT Hospital Encounter [facility] [place] [address] [place] [phone] Akiko Guevara MD [address] [place] [address] Vito Vernon MD [address] [place] [address] related condition, antepartum Discharge Disposition: Home or Self Care Social History Tobacco Use Types Packs/Day Years Used Date Smoking Tobacco: Never Assessed Estimated Date of Delivery Comme nts Yes 04/10/2023 Based on last me nstrual period of 07/04/2022 Sex and Gender Information Value Date Recorded Sex Assigned at Not on file Gender Identity Not on file Sexual Orientation Not on file COVID-19 Exposure Response Date Recorded In the last 10 days, have yo u been in contact with someone who was confirmed or suspected to have Coronavirus/COVID-19? No / Unsure 11/12/2022 11:01 AM CDT documented as of this encounter Plan of Treatment Not on file documented as of this encounter Procedures Procedure Name Priority Date/Time Associated Diagnosis Comments [facility] US COMPREHENSIVE SINGLE Routine 11/12/2022 11:57 AM CDT related condition, antepartum documented in this encounter Results * [facility] Comprehensive Single (11/12/2022 11:57 AM CDT) Anatomical Region Laterality Modality Ultrasound 11/12/2022 11:0 0 AM CDT Impressions 11/12/2022 11:58 AM CDT IMPRESSION ----- 1) Sonographic biometry agrees with gestational age predicted by LMP. 2) The anatomy was adequately visualized and appeared normal. 3) None of the anomalies commonly detected by ultrasound were evident. 4) No markers for aneuploidy seen. Narrative 11/12/2022 11:58 AM CDT Comprehensive ----- Pat. Name: MELODYGREGGTATIANAJENY Study Date: 11/12/2022 11:00am Pat. NO: [id number] Referring ??MD: AKIKO GUEVARA Site: [facility] Drop Forger: Jaki Rivera RDMS : 1985 Age: 37 ----- INDICATION ----- Advanced Maternal Age--Multigravida. Declines aneuploidy screening. History of delivery. Declines transvaginal US. METHOD ----- Transabdominal ultrasound examination. View: Sufficient ----- Matos . Number of fetuses: 1 DATING ----- ? Date ?Details ?Gest. age ?LAKEISHA LMP ?07/04/2022 ? 18 w + 5 d ? 04/10/2023 Prior assessment ? 09/03/2022 ?GA: 8 w + 6 d ? 18 w + 6 d ? 04/09/2023 U/S ? 11/12/2022 ? based upon AC, BPD, Femur, HC ?19 w + 1 d ? 04/07/2023 Assigned dating ?Dating performed on 11/12/2022, based on the LMP ?18 w + 5 d ? 04/10/2023 GENERAL EVALUATION ----- Cardiac activity present. FHR 148 bpm. movements visualized, present. Presentation cephalic. Placenta Anterior, No Previa, > 2 cm from internal os. Umbilical cord 3 vessel cord. Amniotic fluid Amount of AF: normal. MVP 5.1 cm. BIOMETRY ----- Main Biometry: BPD ?43.7 ?mm ? 19w 2d ?Suzie ZAVALA ?56.5 ?mm ? 18w 4d ?Nicolaides HC ?160.7 ?mm ?18w 6d ?Hadlock Cerebellum tr ?19.9 ? mm ?19w 0d ?Nicolaides AC ?143.8 ?mm ?19w 5d ?78% ?Hadlock Femur ?28.2 ? mm ?18w 4d ?Hadlock Humerus ?28.4 ?mm ? 19w 1d ?Mica Weight Calculation: EFW ? 278 ? g ? 71% ?Hadlock EFW (lb,oz) ? 0 lb 10 ? oz EFW by ?Hadlock ([id number]) Head / Face / Neck Biometry: Art Model ? 4.7 ? mm CM ?4.6 ? mm Nasal bone ? 6.0 ? mm Nuchal fold ? 2.7 ? mm ANATOMY ----- The following structures appear normal: Head / Neck ? Cranium. Head size. Head shape. Lateral ventricles. Choroid plexus. Midline falx. Cavum septi pellucidi. Cerebellum. Cisterna magna. ? Parenchyma. Thalami. Vermis. ? Neck. Nuchal fold. Face ? Lips. Profile. Nose. Maxilla. Mandible. Orbits. Lens. Heart / Thorax ?4-chamber view. RVOT view. LVOT view. Situs. Aortic arch view. Bicaval view. Ductal arch view. Superior vena cava. Inferior vena cava. 3-vessel ? view. 3-ojwsnn-fdqjctb view. Cardiac position. Cardiac size. Cardiac rhythm. ? Right lung. Left lung. Diaphragm. Abdomen ? Abdominal wall. Cord insertion. Stomach. Kidneys. Bladder. Liver. Bowel. Genitals. Spine ?Cervical spine. Thoracic spine. Lumbar spine. Sacral spine. Extremities / Skeleton ?Right arm. Right hand. Left arm. Left hand. Right leg. Right foot. Left leg. Left foot. Gender: male. MATERNAL STRUCTURES ----- Cervix ?Visualized ? Appearance: Appears Closed Right Ovary ?Not visualized Left Ovary ?Not visualized RECOMMENDATION ----- We discussed the findings on today's ultrasound with the patient. Return to primary provider for continued care. Thank-you for the opportunity to participate in the care of this patient. If you have questions regarding today's evaluation or if we can be of further service, please contact the [facility]. anomalies may be present but not detected Procedure Note Vito Vernon MD - 11/12/2022 Comprehensive ----- Pat. Name:Marlena GONZALEZ Date:11/12/2022 11:00am Pat. NO: [id number] :AKIKO GUEVARA Site:Jordangrapher:Jaki Rivera RDMS :1985Age:37 ----- INDICATION ----- Advanced Maternal Age--Multigravida. Declines aneuploidy screening.History of delivery. Declines transvaginal US. METHOD ----- Transabdominal ultrasound examination. View: Sufficient ----- Matos . Number of fetuses: 1 DATING ----- DateDetailsGest. age LAKEISHA LMP w + 5 d 04/10/2023 Prior assessment 09/03/2022 GA: 8 w +6 d18 w + 6 d 04/09/2023 U/S 3based upon AC, BPD, Femur, HC19 w + 1 d 04/07/2023 Assigned dating Dating performed on 11/12/2022, based onthe LMP 18 w +5 d 04/10/2023 GENERAL EVALUATION ----- Cardiac activity present. FHR 148 bpm. movements visualized, present. Presentation cephalic. Placenta Anterior, No Previa, > 2 cm from internal os. Umbilical cord 3 vessel cord. Amniotic fluid Amount of AF: normal. MVP 5.1 cm. BIOMETRY ----- Main Biometry: BPD 43.7 mm19w 2d Hadlock OFD 56.5 mm18w 4d Nicolaides HC 160.7 mm18w 6d Hadlock Cerebellum tr 19.9 mm19w 0d Nicolaides AC 143.8 mm19w 5d 78% Hadlock Femur 28.2 mm18w 4d Hadlock Humerus 28.4 mm19w 1d Mica Weight Calculation: EFW 278 g71% Hadlock EFW (lb,oz) 0 lb 10 oz EFW by Hadlock ([id number]) Head / Face / Neck Biometry: Art Model 4.7 mm CM 4.6 mm Nasal bone 6.0 mm Nuchal fold 2.7 mm ANATOMY ----- The following structures appear normal: Head / Neck Cranium. Head size. Head shape.Lateral ventricles. Choroid plexus. Midline falx. Cavum septi pellucidi.Cerebellum. Cisterna magna. Parenchyma. Thalami. Vermis. Neck. Nuchal fold. Face Lips. Profile. Nose. Maxilla.Mandible. Orbits. Lens. Heart / Thorax 4-chamber view. RVOT view. LVOT view.Situs. Aortic arch view. Bicaval view. Ductal arch view. Superior venacava. Inferior vena cava. 3-vessel view. 9-cuhcvy-mspjzsh view.Cardiac position. Cardiac size. Cardiac rhythm. Right lung. Left lung.Diaphragm. Abdomen Abdominal wall. Cord insertion.Stomach. Kidneys. Bladder. Liver. Bowel. Genitals. Spine Cervical spine. Thoracic spine.Lumbar spine. Sacral spine. Extremities / Skeleton Right arm. Right hand. Left arm. Lefthand. Right leg. Right foot. Left leg. Left foot. Gender: male. MATERNAL STRUCTURES ----- Cervix Visualized Appearance: Appears Closed Right Ovary Not visualized Left Ovary Not visualized RECOMMENDATION ----- We discussed the findings on today's ultrasound with the patient. Return to primary provider for continued care. Thank-you for the opportunity to participate in the care of this patient.If you have questions regarding today's evaluation or if we can be offurther service, please contact the [facility]. anomalies may be present but not detected IMPRESSION ----- 1) Sonographic biometry agrees with gestational age predicted by LMP. 2) The anatomy was adequately visualized and appeared normal. 3) None of the anomalies commonly detected by ultrasound were evident. 4) No markers for aneuploidy seen. Akiko Guevara MD IMG [facility] US Manny COVARRUBIAS documented in this encounter Visit Diagnoses Diagnosis related condition, antepartum documented in this encounter Care Teams Tow Boat Captain Relationship Specialty Start Date End Date No Ref-Primary, Physician PCP - General 03/07/22 System, Provider Not In Clinic 03/07/22 documented as of this encounter
--- OUTSIDE RECORDS SUMMARY | 2023-04-28 13:24 | XMS_ITS | Encounter Summary ---
Author Name Unknown Organization [facility] Address [address] [place] [address] Care Team Providers Care Robotics Mechanic Name Role Phone No Ref-Primary, Physician Primary Care Provider System, Provider Not In Unavailable Unavaila ble Reason for Visit * Reason Comments Ultrasound L2/TV- AMA, hx PTD Encounter Details Date Type Department Care Team (Late st Contact Info) Description 11/12/2022 11:30 AM CDT Office Visit [facility] [place] [address] [facility] [facility] [address] [place] [phone] Akiko Govea MD [address] [place] [address] Vito Vernon MD [address] [place] [address] [address] [place] [address] Multigravida of advanced maternal age in second trimester (Primary Dx) Social History Tobacco Use Types [...] AM CDT documented as of this encounter Progress Notes * Vito Vernon MD - 11/12/2022 11:30 AM CDT Please see Imaging tab under Chart Review for details of today's US at the [facility]. Vito Vernon MD Maternal- Medicine documented in this encounter Nursing Notes * Juana Saucedo RN - 11/12/2022 11:30 AM CDT Patient reports positive movement, no pain, no contractions, leaking of fluid, or bleeding. SBAR given to [facility] MD, see their note in Epic. documented in this encounter Plan of Treatment Not on file documented as of this encounter Visit Diagnoses Diagnosis Multigravida of advanced maternal age in second trimester- Primary documented in this encounter Care Teams Robotics Mechanic Relationship Specialty Start Date End Date No Ref-Primary, Physician PCP - General 03/07/22 System, Provider Not In Clinic 03/07/22 documented as of this encounter
--- OUTSIDE RECORDS SUMMARY | 2023-04-28 13:24 | XMS_ITS | Encounter Summary ---
Author Name Unknown Organization [facility] Address [address] [place] [address] Care Team Providers Care Slot Shift Manager Name Role Phone No Ref-Primary, Physician Primary Care Provider System, Provider Not In Unavailable Unavaila ble Reason for Referral * Diagnostic Imaging Ultrasound (Routine) - Pending Review Specialty Diagnoses / Procedures Referred By Yuniel t Referred To Contact Radiology. Diagnoses related condition, antepartum Procedures [facility] Comprehensive Single Akiko Guevara MD [address] [place] [address] Referral ID Status Reason Start Date Expiration Date V isits Requested Visits Authorized Pending Review 09/24/2022 09/24/2023 1 1 Encounter Details Date Type Department Care Team (Latest Contact Info) Description 09/24/2022 Transcribe Orders [facility] [place] [address] [facility] [address] [place] [phone] Akiko Guevara MD [address] [place], [place] [phone] related condition, antepartum (Primary Dx) Social History Tobacco Use Types Packs/Day Years Used Date Smoking Tobacco: Never Assessed Sex and Gender Information Value Date Recorded Sex Assigned at Not on file Gender Identity Not on file Sexual Orientation Not on file documented as of this encounter Plan of Treatment Not on file documented as of this encounter Results * [facility] Comprehensive Single (11/12/2022 11:57 AM CDT) Anatomical [...] 11:58 AM CDT Comprehensive ----- Pat. Name: JENY GONZALEZ Study Date: 11/12/2022 11:00am Pat. NO: [id number] Referring ??: AKIKO GUEVARA Site: [employer] [facility] Assistant: Jaki Rivera RDMS : 1985 Age: 37 [...] Biometry: BPD ?43.7 ?mm ? 19w 2d ?Hadlock OFD ?56.5 ?mm ? 18w 4d ?Nicolaides HC ?160.7 ?mm ?18w 6d ?Hadlock Cerebellum tr ?19.9 ? mm ?19w 0d ?Nicolaides AC ?143.8 ?mm ?19w 5d ?78% ?Hadlock Femur ?28.2 ? mm ?18w 4d ?Hadlock Humerus ?28.4 ?mm ? 19w 1d ?Mica Weight Calculation: EFW ? 278 ? g ? 71% ?Hadlock EFW (lb,oz) ? 0 lb 10 ? oz EFW by ?Suzie ([id number]) Head / Face / Neck Biometry: Family Physician ? 4.7 ? mm CM ?4.6 ? [...] cava. Inferior vena cava. 3-vessel ? view. 0-epjygw-nhwkjib view. Cardiac position. Cardiac size. Cardiac rhythm. [...] Pat. Name:Marlena GONZALEZ Date:11/12/2022 11:00am Pat. NO: [id number] :AKIKO GUEVARA [facility]Jaki Rivera [facility] :1985Age:37 ----- INDICATION ----- Advanced Maternal Age--Multigravida. Declines aneuploidy screening.History of delivery. Declines transvaginal US. METHOD ----- Transabdominal ultrasound examination. View: Sufficient ----- Matos . Number of fetuses: 1 DATING ----- DateDetailsGest. age LAKEISHA LMP w + 5 d 04/10/2023 Prior assessment 09/03/2022 GA: 8 w +6 d18 w + 6 d 04/09/2023 U/S 11/12/2022ased upon AC, BPD, Femur, HC19 w + [...] 0 lb 10 oz EFW by Hadlock ([id number]) Head / Face / Neck Biometry: Family Physician 4.7 mm CM 4.6 mm Nasal bone [...] Superior venacava. Inferior vena cava. 3-vessel view. 4-igtbxs-lztbibs view.Cardiac position. Cardiac size. Cardiac rhythm. Right [...] 4) No markers for aneuploidy seen. Akiko WHITLOCK [facility] Manny COVARRUBIAS documented in this encounter Visit Diagnoses Diagnosis related condition, antepartum- Primary related condition, antepartum documented in this encounter Care Teams Slot Shift Manager Relationship Specialty Start Date End Date No Ref-Primary, Physician PCP - General 03/07/22 System, Provider Not In Clinic 03/07/22 documented as of this encounter
--- OUTSIDE RECORDS SUMMARY | 2023-04-28 13:24 | XMS_ITS | Encounter Summary ---
Author Name Unknown Organization [facility] Address [address] [place] [address] Care Team Providers Care Civil Laboratory Technician Name Role Phone No Ref-Primary, Physician Primary Care Provider System, Provider Not In Unavailable Unavaila ble Reason for Visit * Reason Comments Ultrasound L2-AMA, hx PTL with PTD Encounter Details Date Type Department Care Team (Late st Contact Info) Description 11/05/2022 PRE VISIT [facility] [place] [address] [facility] [address] [place] [phone] Lesly Crawley, AVELINA Ultrasound (L2-AMA, hx PTL with PTD) Social History Tobacco Use Types Packs/Day Years [...] on filedocumented in this encounter Care Teams Civil Laboratory Technician Relationship Specialty Start Date End Date No Ref-Primary, Physician PCP - General 03/07/22 System, Provider Not In Clinic 03/07/22 documented as of this encounter
--- OUTSIDE RECORDS SUMMARY | 2023-04-28 13:24 | XMS_ITS | Encounter Summary ---
Author Name Unknown Organization [facility] Address [address] [place] [address] Care Team Providers Care Block Captain Name Role Phone No Ref-Primary, Physician Primary Care Provider System, Provider Not In Unavailable Unavaila ble Encounter Details Date Type Department Care Team (Latest Contact Info) Description 11/12/2022 Travel Social History Tobacco Use Types Packs/Day Years [...] on filedocumented in this encounter Care Teams Block Captain Relationship Specialty Start Date End Date No Ref-Primary, Physician PCP - General 03/07/22 System, Provider Not In Clinic 03/07/22 documented as of this encounter
[2023-04-28 18:19] LABS: Chlamydia DNA Amplified* Not Detected (No Detected); GC DNA Amplified* Not Detected (No Detected)
== END 2023-04-28 13:22 | disposition home or self-care (01) ==
PROVIDERS: PCP Family Medicine; Visit Provider Registered Nurse
DX: Z11.3 Encounter for screening for infections with a predominantly sexual mode of transmission (principal)
CPT/HCPCS: 86592; 86703; 86803; 87340; 87491; 87591

== ENCOUNTER 2023-09-07 13:10 | Outpatient (CLI) | payer MEDICAID, SELFPAY ==
--- OUTSIDE RECORDS SUMMARY | 2023-09-11 20:49 | XMS_ITS | Continuity of Care Document ---
Author Organization [place] - [facility] [place] [facility] Address [address] [place] [address] [address] [address] Assessment Encounter Date Assessment Date Assessment LastModified by Organization Details LastModified Time 07/29/2023 07/29/2023 Informed the patient of her diagnosis as detailed down below. Of note the patient has had a successful delivery and the patient will be working with back and hip specialists (now including neurology) for evaluation of significant pain first prior to proceeding with surgical correction of her hallux limitus. Regarding the patient's foot pain I did inform the patient that for surgical correction of her pinch callus to the right foot it is secondary to her functional Hallux limitus and we can address this with a plantarflexory, decompression modified Franky in addtion to a possible condylectomy to the distal phalanx of the Hallux. The patient was informed of the general post surgical course and recovery time and was stressed of the importance of complete smoking sensation prior to undergoing elective surgery secondary to increased risks of skin healing complications and bone healing complications. Not available 07/29/2023 11:19:59 Plan of Treatment Reminders Order Date Submit Date Provider Last Modified By Organization Details Last Modified Time Details Appointments Office Visit 2023 09:00A Jax Duff Not available Not available Not available Lab None recorde d. Referral None recorde d. Procedures None recorde d. Surgeries None recorde d. Imaging None recorde d. Medication Orders None recorde d. Patient TargetsNo targets recorded. Patient InstructionsNo instructions recorded. Reason for Referral None Reported. Problems Name Status Onset Date Resolution Date Notes Provider Name and Address Organization Details Recorded Time Ingrowing nail Active 05/14/19 22 Ingrowing nail; Original Code: 8642148154 Original Codesystem: SNOMED CT Classifi cation: Medical Con firmation Status: Confirmed Not Available [facility] 06/03/2022 09:15:41 Acquired deformity of ankle AND/OR foot Active 05/24/19 20 Acquired deformity of ankle AND/OR foot; Original Code: [id number] O riginal Codesystem: SNOMED CT Classifi cation: Medical Con firmation Status: Confirmed Not Available [facility] 06/03/2022 09:15:41 Acquired hallux rigidus Active 11/17/19 17 Acquired hallux rigidus; Original Code: [id number] Or iginal Codesystem: SNOMED CT Classifi cation: Medical Con firmation Status: Confirmed Not Available [facility] 06/03/2022 09:15:41 Problem Notes None recorded. Procedures Surgical History Date Name Laterality Status Provider Name and Address Organization Details Recorded Time 024 CallusDEBRIDEMENT [place], [address], [facility] 07/29/2023 11:19:29 024 CallusDEBRIDEMENT completed Diya bell [facility] 07/03/2023 09:12:49 024 CallusDEBRIDEMENT [place], [address], [facility] 05/22/2023 10:06:43 024 CallusDEBRIDEMENT [place], [address], [facility] 04/17/2023 11:51:08 023 CallusDEBRIDEMENT [place], [address], [facility] 03/04/2023 10:44:45 023 CallusDEBRIDEMENT completed Diya bell [facility] 01/13/2023 19:31:21 023 CallusDEBRIDEMENT completed Wagner Duff DPM [address] [place], [address], [facility] - [facility] 12/03/2022 11:03:00 023 CallusDEBRIDEMENT completed Wagner Duff DPM [address] [place], [address], [facility] - [facility] 10/22/2022 13:24:20 023 CallusDEBRIDEMENT completed Wagner Duff DPM [address] [place], [address], [facility] - [facility] 09/10/2022 13:50:37 023 Partial Nail Avulsion with Phenol Matrixectomy Dr. Huber completed Pradip Ibrahim DPM [address] [place], [address], [facility] 07/03/2022 14:52:32 023 CallusDEBRIDEMENT completed Pradip Ibrahim DPM [address] [place], [address], [facility] 05/29/2022 10:48:10 023 CallusDEBRIDEMENT completed Pradip Ibrahim DPM [address] [place], [address] 04/26/2022 10:27:42 022 Routine Foot Care completed Pradip Ibrahim DPM [address] [facility] [address] 03/04/2022 14:23:10 Imaging Results None recorded. Procedure Notes None recorded. Medical Equipment None Reported. Allergies Allergen ID Allergen Name Allergen Category Reaction Reaction Severity Criticality Documentation Date Start Date Code Code System Note Provider Name and Address Organization Details Recorded Time 89 adhesive tape environme nt,medica tion Not available Not available Not available 02/04/2022 CARMEN Clark - [facility] 14:10:30 90 aspirin medicatio n Not available Not available Not available 02/04/2022 1191 RxNorm CARMEN Clark - [facility] 2 14:10:38 91 acetamino phen / hydrocodo ne medicatio n Not available Not available Not available 02/04/2022 68892 2 Willi bell [facility] 2 14:10:47 92 acetamino phen / hydrocodo ne medicatio n Not available Not available Not available 02/04/2022 95299 2 Willi bell, [facility] 2 14:10:57 Medications Name Sig Start Date Stop Date Status Note LastModified by Organization Details LastModified Time celecoxib 200 mg capsule TAKE 1 CAPSULE BY MOUTH TWICE DAILY active Not Available Not Available No t Available cyclobenzapr ine 10 mg tablet active Not Available Not Available Not Available azithromycin 250 mg tablet TAKE 2 TABLETS BY MOUTH ON DAY 1 THEN 1 TABLET DAILY FOR 4 DAYS active Not Available Not Available No t Available fluconazole 150 mg tablet TAKE 1 TABLET BY MOUTH 1 TIME FOR 1 DAY active Not Available Not Available No t Available prednisone 20 mg tablet TAKE 2 TABLETS BY MOUTH EVERY DAY active Not Available Not Available No t Available miconazole nitrate 2 % vaginal cream INSERT 1 APPLICATORF UL VAGINALLY EVERY DAY AT BEDTIME FOR 7 DAYS active Not Available Not Available N ot Available clindamycin HCl 150 mg capsule TAKE 1 CAPSULE BY MOUTH THREE TIMES DAILY FOR 10 DAYS active Not Available Not Available Not Available Accu-Chek Softclix Lancets TEST FOUR TIMES DAILY active Not Available Not Available Not Available metronidazol e 500 mg tablet TAKE 1 TABLET BY MOUTH EVERY 12 HOURS FOR 7 DAYS active Not Available Not Available N ot Available sulfamethoxa zole 800 mg-trimethop rim 160 mg tablet active Not Available Not Available Not Available tramadol 50 mg tablet TAKE 1 TABLET BY MOUTH EVERY 8 HOURS NEEDED FOR PAIN active Not Available Not Available No t Available meclizine 25 mg tablet TAKE 1 TABLET BY MOUTH BY MOUTH TWICE DAILY IF NEEDED FOR VERTIGO active Not Available Not Available No t Available esomeprazole magnesium 40 mg capsule,jaiden yed release TAKE 1 CAPSULE BY MOUTH EVERY DAY active Not Available Not Available No t Available prednisone 50 mg tablet TAKE 1 TABLET BY MOUTH EVERY DAY active Not Available Not Available No t Available docusate sodium 100 mg capsule TAKE 1 CAPSULE BY MOUTH TWICE DAILY NEEDED FOR CONSTIPATIO N active Not Available Not Available No t Available magnesium citrate oral solution DRINK 100 ML BY MOUTH EVERY 6-8 HOURS NEEDED FOR CONSTIPATIO N active Not Available Not Available No t Available epinephrine 0.3 mg/0.3 mL injection, auto-injecto r ADMINISTER 0.3 ML IN THE MUSCLE 1 TIME NEEDED FOR ANAPHYLAXIS active Not Available Not Available Not Available ondansetron 4 mg disintegrati ng tablet PLACE 1 TABLET ON THE TONGUE EVERY 8 HOURS IF NEEDED FOR NAUSEA OR VOMITING active Not Available Not Available No t Available cefdinir 300 mg capsule TAKE 1 CAPSULE BY MOUTH TWICE DAILY FOR 10 DAYS active Not Available Not Available No t Available fluticasone propionate 50 mcg/actuatio n nasal spray,suspen giselle SHAKE LIQUID AND USE 2 SPRAYS IN EACH NOSTRIL EVERY DAY active Not Available Not Available No t Available naproxen 500 mg tablet active Not Available Not Available No t Available Ventolin HFA 90 mcg/actuatio n aerosol inhaler INHALE 2 PUFFS BY MOUTH EVERY 4 HOURS NEEDED FOR SHORTNESS OF BREATH OR WHEEZING active Not Available Not Available Not Available clindamycin phosphate 1 % topical solution APPLY TO AFFECTED AREA ONCE A DAY active Not Available Not Available No t Available chlorhexidin e gluconate 0.12 % mouthwash RINSE 1 CAPFUL BY MOUTH TWICE DAILY active Not Available Not Available No t Available diclofenac 1 % topical gel APPLY 4 GRAMS TOPCIALLY TO AFFECTED AREAS FOUR TIMES DAILY active Not Available Not Available Not Available Accu-Chek Guide test strips TEST FOUR TIMES DAILY active Not Available Not Available Not Available Accu-Chek Guide Me Glucose Meter USE FOUR TIMES DAILY active Not Available Not Available Not Available Vitals None Recorded Social History None recorded. Functional Status None recorded. Mental Status None recorded. Family History Nothing Reported. Medical History No medical history recorded. Gynecological HistoryNo gynecological history recorded. Obstetrics History GPAL:G 0 P 0 0 0 0 Past Encounters Encounter ID Performer Location Encounter Start Date Encounter Closed Date Diagnosis/Indication Diagnosis SNOMED-CT Code [id number] Wagner Duff DPM [place] [facility] [address] [facility] [address] [place] [address] 07/03/2023 09:04:43 07/06/2023 10:17:19 Foot callus 654812522 Pain in right foot 56993 390694181 7 Acquired h allux limitus of right great toe 43354183369989 00 Acquired h allux limitus of left great toe [id number] 09 [id number] Wagner Duff DPM [place] [facility] [address] [place] [address] 07/29/2023 09:33:09 07/29/2023 16:01:57 Foot callus 122379081 Pain in right foot 65430 120190431 7 Acquired h allux limitus of right great toe 64624242329327 00 Acquired h allux limitus of left great toe 54679265219858 09 Health Concerns Section Related Observation LastModified by Organization Detai ls LastModified Time None Recorded Concern Status LastModified by Organization Details LastModified Time None Recorded Payers Encounter Date Sequence Insurance Name Policy Number Policy Rubin Covered Member ID Rubin Member ID Guarantor Name 07/29/2023 1 [employer] - INDIVIDUAL AND FAMILY (HMO) [id number] 1 Jeny Carter [id number] Jeny Carter Notes Date Note Type Note Provider Name and Address Organization Details Recorded Time 07/29/2023 text/html HPI Notes: Patient is a 37 year old female established patient who presents today for a recheck of a painful callus to both feet in addition to a recheck of previous custom inserts. 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 Wagner Duff DPM [address] [place], [address], [facility] - [facility] 07/29/2023 11:20:03 OBGyn Episode No OBEpisode recorded.
--- OUTSIDE RECORDS SUMMARY | 2023-09-11 20:50 | XMS_ITS | Continuity of Care Document ---
Author Organization [place] - [facility] [place] Office Address [address] [place] [address] [address] [address] Assessment Encounter Date Assessment Date Assessment LastModified by Organization Details LastModified Time 07/03/2023 07/03/2023 Informed the patient of her diagnosis as [...] complications and bone healing complications. Not available 07/03/2023 09:55:12 Plan of Treatment Reminders Order Date Submit [...] Active 05/14/19 22 Ingrowing nail; Original Code: 9805941408 Original Codesystem: SNOMED CT Classifi cation: Medical Con firmation Status: Confirmed Not Available [facility] 06/03/2022 09:15:41 Acquired deformity of ankle AND/OR foot Active 05/24/19 20 Acquired deformity of ankle AND/OR foot; Original Code: 134824962 O riginal Codesystem: SNOMED CT Classifi cation: Medical Con firmation Status: Confirmed Not Available [facility] 06/03/2022 09:15:41 Acquired hallux rigidus Active 11/17/19 17 Acquired hallux rigidus; Original Code: 56287141 Or iginal Codesystem: SNOMED CT Classifi cation: Medical Con firmation Status: Confirmed Not Available [facility] 06/03/2022 09:15:41 Problem Notes None recorded. Procedures Surgical History Date Name Laterality Status Provider Name and Address Organization Details Recorded Time 024 CallusDEBRIDEMENT [place], [address], [facility] 07/29/2023 11:19:29 024 CallusDEBRIDEMENT completed Diya bell [facility] 07/03/2023 09:12:49 024 CallusDEBRIDEMENT [place], [address], [facility] 05/22/2023 10:06:43 024 CallusDEBRIDEMENT completed [place], [address], [facility] 04/17/2023 11:51:08 023 CallusDEBRIDEMENT completed [place], [address], [facility] 03/04/2023 10:44:45 023 CallusDEBRIDEMENT completed Diya bell [facility] 01/13/2023 19:31:21 023 CallusDEBRIDEMENT completed Wagner Duff DPM [address] [place], [address], [facility] 12/03/2022 11:03:00 023 CallusDEBRIDEMENT completed Wagner Duff DPM [address] [place], [address], [facility] 10/22/2022 13:24:20 023 CallusDEBRIDEMENT completed Wagner Duff DPM [address] [place], [address], [facility] 09/10/2022 13:50:37 023 Partial Nail Avulsion with Phenol Matrixectomy Dr. Huber completed Pradip Ibrahim DPM [address] [place], [address], [facility] 07/03/2022 14:52:32 023 CallusDEBRIDEMENT completed Pradip Ibrahim DPM [address] [place], [address], [facility] 05/29/2022 10:48:10 023 CallusDEBRIDEMENT completed Pradip Ibrahim DPM [address] [place], [address] 04/26/2022 10:27:42 022 Routine Foot Care completed Pradip Ibrahim DPM [address] [facility] [address] 03/04/2022 [...] Not available Not available Not available 02/04/2022 [id number] 2 Willi bell [facility] 2 14:10:47 92 acetamino phen / hydrocodo ne medicatio n Not available Not available Not available 02/04/2022 22402 2 Willi bell, [facility] 2 14:10:57 [...] Encounter Closed Date Diagnosis/Indication Diagnosis SNOMED-CT Code [id number] Wagner Duff DPM [place] [facility] [place] [address] 06/10/2023 16:15:55 06/11/2023 09:32:36 Pain in left foot 26609932130022 7 Pain in right foot 18093 702045933 7 [id number] Wagner Duff DPM [place] [facility] [address] [facility] [address] [place] [address] 07/03/2023 09:04:43 07/06/2023 10:17:19 Foot callus 116152894 Pain in right foot 81381 482920851 7 Acquired h allux limitus of right great toe 02068228564741 00 Acquired h allux limitus of left great toe 92032836951824 09 Health Concerns Section Related Observation LastModified by Organization Detai ls LastModified Time None Recorded Concern Status LastModified by Organization Details LastModified Time None Recorded Payers Encounter Date Sequence Insurance Name Policy Number Policy Rubin Covered Member ID Rubin Member ID Guarantor Name 07/03/2023 1 [facility] [id number] 1 Jeny Carter [id number] Jeny Carter Notes Date Note Type Note Provider Name and Address Organization Details Recorded Time 07/03/2023 text/html HPI Notes: Patient is a 37 [...] from her hips. Wagner Duff DPM [address] [place], [address], [facility] 07/03/2023 09:55:15 OBGyn Episode No OBEpisode recorded.
--- OUTSIDE RECORDS SUMMARY | 2023-09-11 20:50 | XMS_ITS | Clinical Summary ---
Author Organization [facility] Address [address] [place] [address] Care Team Providers Care Brick Kiln Burner Name Role Phone No Ref-Primary, Physician Primary Care Provider System, Provider Not In Unavailable Unavaila ble Social History Tobacco Use Types Packs/Day Years Used Date Smoking Tobacco: Never Assessed Adolescent Education Answer Date Record ed Getting School Help Needed Not on file 12/20 Sex and Gender Information Value Date Recorded Sex Assigned at Not on file Gender Identity Not on file Sexual Orientation Not on file Plan of Treatment Health Maintenance Due Date Last Done Comments ADVANCE CARE PLANNING 1985 ANNUAL REVIEW OF HM ORDERS 1985 GLUCOSE 1985 YEARLY PREVENTIVE VISIT 1985 PAP 2006 COVID-19 Vaccine ( season) 2022 PHQ-2 (once per calendar year) 2023 INFLUENZA VACCINE (Season Ended) 2023 DTAP/TDAP/TD IMMUNIZATION (4 - Td or Tdap) 01/04/2024 01/03/2014, 01/11/2007, 07/12/1998 HEPATITIS B IMMUNIZATION Completed 000, 10/10/1999, 01/23/1998, Additional history exists Pneumococcal Vaccine: Pediatrics (0 to 5 Years) and At-Risk Patients (6 to 64 Years) Aged Out 02/03/2012 No longer eligible based on patient's age to complete this topic HEPATITIS C SCREENING Completed 09/03/2022, HIV SCREENING Completed 09/03/2022, 02/24/2022 HPV IMMUNIZATION [...] on patient's age to complete this topic Procedures Procedure Name Priority Date/Time Associated Diagnosis Comments ABSTRACT HIV Routine 09/03/2022 12:06 PM CDT HEPATITIS C (HIM EXTERNAL RESULT) Routine 09/03/2022 12:06 PM CDT from Last 3 Months or Most Recently Relevant to Health Maintenance Results * ABSTRACT HIV (09/03/2022 12:06 PM CDT) HIV 1&2 EXT Non-Reacti ve [facility] Comment:Negative Blood 09/03/2022 12:0 6 PM CDT [facility] - 09/03/2022 12:06 PM CDT [facility] RESULT Provider Outside LAB - HIM EXTERNAL R ESULT [facility] [address] [phone] * Hepatitis C (HIM External Result) (09/03/2022 12:06 PM CDT) Hep C HIM See Scanned Document [facility] Comment:Negative 09/03/2022 12:0 6 PM CDT [facility] - 09/03/2022 12:06 PM CDT [facility] RESULT Provider Outside LAB - HIM EXTERNAL R ESULT [facility] [address] [place] [address], [facility] [phone] from Last 3 Months or Most Recently Relevant to Health Maintenance Care Teams Brick Kiln Burner Relationship Specialty Start Date End Date No Ref-Primary, Physician PCP - General 03/07/22 System, Provider Not In Clinic 03/07/22
--- OUTSIDE RECORDS SUMMARY | 2023-09-11 20:50 | XMS_ITS | Clinical Summary ---
Author Organization [facility] Address [place], [place] [address] Care Team Providers Care Merchandising Coordinator Name Role Phone David Baum MD Primary [...] once daily. 30 tablet 12 07/09/2009 Active mometasone-formotero l (DULERA) 100-5 mcg/actuation inhaler Inhale 2 Puffs by mouth 2 times daily. Active naproxen (NAPROSYN) 500 mg tablet Take 500 mg by mouth every 12 hours if needed. Active traMADol (ULTRAM) 50 mg tabletIndications:Ri ght hip pain,Right knee pain, unspecified chronicity Take 1 tablet by mouth every 6 hours if needed for Pain. 6 tablet 0 01/04/2016 Active LORazepam (ATIVAN) 1 mg tablet Take 1 mg by mouth 3 times daily if needed. Active medroxyPROGESTERone acetate, contraceptive, (DEPO-PROVERA) 150 mg/mL injection Inject 150 mg intramuscular every 3 months. Active clindamycin 1% (CLEOCIN-T) 1 % gel Apply topically to affected area(s) 2 times daily. Active metoclopramide HCl (REGLAN) 10 mg tabletIndications:In tractable migraine with status migrainosus, unspecified migraine type Take 1 tablet by mouth 4 times daily before meals and at bedtime. 10 tablet 10/26/2019 Active EPINEPHrine (EpiPen 2-Jalil) 0.3 mg/0.3 mL injectionIndications :Bee sting reaction, accidental or unintentional, initial encounter Inject 0.3 mg intramuscular one time if needed for Allergic Reaction. 2 Each 12/12/2020 Active meclizine (ANTIVERT) 25 mg tabletIndications:Ot her migraine without status migrainosus, not intractable,Nausea and vomiting, unspecified vomiting type Take 1 Tablet (25 mg) by mouth 2 times daily if needed for Vertigo. 10 Tablet 04/08/2021 Active ondansetron (ZOFRAN ODT) 4 mg disintegrating tabletIndications:Ot her migraine without status migrainosus, not intractable,Nausea and vomiting, unspecified vomiting type Place 1 Tablet (4 mg) on the tongue every 8 hours if needed for Nausea/Vomiting. 10 Tablet 04/08/2021 Active diclofenac topical (VOLTAREN) 1 % gelIndications:Acute right-sided low back pain with right-sided sciatica Apply 4 g topically to affected area(s) four times daily. 50 g 06/07/2023 Active lidocaine 5 % topical patchIndications:Acu te right-sided low back pain with right-sided sciatica Apply to intact skin to cover most painful area for max 12hr per 24hr period. 10 Patch 06/07/2023 Active cyclobenzaprine (FLEXERIL) 10 mg tabletIndications:Ac dayday right-sided low back pain with right-sided sciatica Take 1 Tablet (10 mg) by mouth 3 times daily if needed for Muscle Spasm. 20 Tablet 06/07/2023 Active docusate (COLACE) 100 mg capsuleIndications:C onstipation by delayed colonic transit Take 1 Capsule (100 mg) by mouth 2 times daily if needed for Constipation. 30 Capsule 06/07/2023 Active magnesium citrate (CITRATE OF MAG) solutionIndications: Constipation by delayed colonic transit 100 mL every 6-8 hours as needed for constipation. 300 mL 06/07/2023 Active Active Problems Problem Noted Date Diagnosed [...] Date Supervision of other normal 02/14/2009 05/25/2009 Immunizations Name Administration Dates Next Due Tdap [...] Outcome GA Total Labor Labor/2nd/3rd Weight Sex Type Anes PTL Elizabeth A1 A5 Name Clin 008 Term 40w 1d 14h 00m/ 3.12 kg (6 lb 14 oz) F Vag Epidur al My [facility] Delivery Location:[facility] Comments:Amniotomy and pit needed Last Filed Vital Signs Vital Sign Reading Time Taken Comments Blood Pressure 124/82 06/07/2023 1:17 PM CDT Pulse 82 06/07/2023 1:17 PM CDT Temperature 37.1 ??C (98.7 ??F) 06/07/2023 11:20 AM C DT Respiratory Rate 18 06/07/2023 1:17 PM CDT Oxygen Saturation 98% 06/07/2023 1:17 PM CDT Inhaled Oxygen Concentration - - Weight 72.6 kg (160 lb) 02/28/2022 9:51 PM LOOM OPERATOR APPRENTICE Height 170.2 cm (5' 7) 09/19/2022 6:12 PM CDT Body Mass Index 25.06 02/28/2022 9:51 PM LOOM OPERATOR APPRENTICE Plan of Treatment Health Maintenance Due Date Last Done Comments Pneumococcal series for age 6-64 (1 of 2 - PCV) 08/31/1991 Depression screening for age 12+ 1997 BMI (ht and wt on same day) for age 18+ 02/12/2019 02/12/2018 COVID-19 vaccine series (2022- season) 2022 Influenza for age 9-49 11/29/2023 Tetanus booster 01/04/2024 01/03/2014, 01/11/2007 Pap test for age 21-65 01/30/2024 , 01/29/2021, 09/09/2017, Additional history exists HIV for age 15-65 Completed 07/09/2009 Hepatitis C screening for ag e 18-79 Completed 07/09/2009 Tdap Completed 01/03/2014, 01/11/2007 Procedures Procedure Name Priority Date/Time Associated Diagnosis Comments HPV THIN PREP Routine 01/29/2021 12:00 PM CDT ANTI HIV 1/2 Routine 07/09/2009 2:23 PM CDT High risk sexual behavior ANTI HCV Routine 07/09/2009 2:23 PM CDT High risk sexual behavior from Last 3 Months or Most Recently Relevant to Health Maintenance Results * HPV HIGH RISK (01/29/2021 12:00 PM CDT) TYPE 16 Negative Negative 01/31/2021 3:09 PM CDT [facility] TYPE 18 Negative Negative 01/31/2021 3:09 PM CDT [facility] OTHER HIGH RISK TYPES Negative Negative 01/31/2021 3:09 PM CDT [facility] Other (Cervical/Vagina l) 01/29/2021 12:00 PM CDT 01/30/2021 9:33 AM CDT Narrative [facility] - 01/31/2021 3:09 PM CDT HPV types 16, 18, 31, 33, 35, 39, 45, 51, 52, 56, 58, 59, 66 and 68 DNA were undetectable or below the pre-set threshold. Methodology: Cezar Karin 4800 HPV Test Akiko Govea MD MICROBIOLO GY [facility] [address] [place] [address], * ANTI HCV (07/09/2009 2:23 PM CDT) ANTI HCV Non-reacti ve [facility] Blood specimen (specimen) BLOOD SPECIMEN / Unknown 07/09/2009 2:23 PM CDT 07/09/2009 2:15 PM CDT Keri Grullon MD SEND OUTS [facility] [place]NAL ZIP [address] [place] [id number] * ANTI HIV 1/2 (07/09/2009 2:23 PM CDT) ANTI HIV 1/2 Non-reacti [facility] Blood specimen (specimen) BLOOD SPECIMEN / Unknown 07/09/2009 2:23 PM CDT 07/09/2009 2:15 PM CDT Keri Grullon MD SEND OUTS [facility] INTERNAL ZIP [address] [place] [address] from Last 3 Months or Most Recently Relevant to Health Maintenance Additional Health Concerns Infection Onset Date Last Indicated MRSA Comment:Contact precautions 05/25/2009 05/25/2009 Advance Directives * Full Code (Latest Code Status on File) Date Activated Date Inactivated Comments 05/19/2016 11:34 AM 05/19/2016 4:25 PM * Full Code Date Activated Date Inactivated Comments 05/29/2009 3:21 PM 05/31/2009 7:08 PM * Full Code Date Activated Date Inactivated Comments 05/29/2009 5:43 AM 05/29/2009 3:16 PM * Full Code Date Activated Date Inactivated Comments 05/25/2009 6:36 PM 05/29/2009 5:43 AM Care Teams Merchandising Coordinator Relationship Specialty Start Date End Date David Baum MD [address] [place] [address] PCP - General Family Practice 12/12/20
--- OUTSIDE RECORDS SUMMARY | 2023-09-11 20:50 | XMS_ITS | Referral Summary ---
Author Organization [facility] Address [address] [place] [address] Care Team Providers Care Lamp Tester And Inspector Name Role Phone No Ref-Primary, Physician Primary [...] file Plan of Treatment Not on file Procedures Procedure Name Priority Date/Time Associated Diagnosis Comments ABSTRACT HIV Routine 09/03/2022 12:06 PM CDT HEPATITIS C (HIM EXTERNAL RESULT) Routine 09/03/2022 12:06 PM CDT from Last 3 Months or Most Recently Relevant to Health Maintenance Results * ABSTRACT HIV (09/03/2022 12:06 PM CDT) Pathologist [facility] HIV 1&2 EXT Non-Reacti ve [facility] Comment:Negative Blood 09/03/2022 12:0 6 PM CDT Narrative [facility] - 09/03/2022 12:06 PM CDT [facility] RES[facility] Provider Outside LAB - HIM EXTERNAL R ESULT [facility] [address] [place] [address], [facility] [phone] * Hepatitis C (HIM External Result) (09/03/2022 12:06 PM CDT) Hep C HIM See Scanned Document [facility] Comment:Negative 09/03/2022 12:0 6 PM CDT Narrative [facility] - 09/03/2022 12:06 PM CDT [facility] RES[facility] Provider Outside LAB - HIM EXTERNAL R ESULT [facility] [address] [place], [place] [address] [phone] from Last 3 Months or Most Recently Relevant to Health Maintenance Care Teams Lamp Tester And Inspector Relationship Specialty Start Date End Date No Ref-Primary, Physician PCP - General 03/07/22 System, Provider Not In Clinic 03/07/22
== END 2023-09-07 13:11 | disposition home or self-care (01) ==
LOC: NFLDREF 09-11 20:47
PROVIDERS: PCP Family Medicine; Referring Provider Family Medicine; Visit Provider Family Medicine
DX: R30.0 Dysuria (principal)
CPT/HCPCS: 81001; 87086

== ENCOUNTER 2023-09-21 09:30 | Outpatient (CLI) | payer MEDICAID, SELFPAY ==
--- OUTSIDE RECORDS SUMMARY | 2023-09-23 11:26 | XMS_ITS | Continuity of Care Document ---
Author Organization [place] [facility] [place] [facility] Address [address] [place] [address] [address] [address] Assessment Encounter Date Assessment Date Assessment LastModified by Organization Details LastModified Time 09/16/2023 09/16/2023 Informed the patient of her diagnosis as detailed down below. Of note the patient has had a successful delivery and the patient will be working with back and hip specialists (now including neurology) for evaluation of significant pain first prior to proceeding with surgical correction of her hallux limitus. She mentions that since last being seen this has improved significantly. Regarding the patient's foot pain I did [...] skin healing complications and bone healing complications. The patient mentions that she is actively working on reducing her smoking status in preperation for this and an additional dental procedure and she would like to schedule for mid October. The patient also had custom inserts dispensed to her today and were trimmed to properly fit shoes. She was given aftercare instructions regarding use. Not available 09/16/2023 10:23:41 Plan of Treatment Reminders Order Date Submit Date Provider Last Modified By Organization Details Last Modified Time Details Appointments Office Visit 2023 08:45A Jax Duff Not available Not available Not [...] Active 05/14/19 22 Ingrowing nail; Original Code: [id number] Original Codesystem: SNOMED CT Classifi cation: Medical Con firmation Status: Confirmed Not Available [facility] 06/03/2022 09:15:41 Acquired deformity of ankle AND/OR foot Active 05/24/19 20 Acquired deformity of ankle AND/OR foot; Original Code: [id number] O riginal Codesystem: SNOMED CT Classifi cation: Medical Con firmation Status: Confirmed Not Available [facility] 06/03/2022 09:15:41 Acquired hallux rigidus Active 11/17/19 17 Acquired hallux rigidus; Original Code: [id number] Or iginal Codesystem: SNOMED CT Classifi cation: Medical Con firmation Status: Confirmed Not Available [facility] 06/03/2022 09:15:41 Problem Notes None recorded. Procedures Surgical History Date Name Laterality Status Provider Name and Address Organization Details Recorded Time 024 CallusDEBRIDEMENT completed Wagner Duff DPM [address] [place], [address], [facility] 09/16/2023 10:19:50 024 CallusDEBRIDEMENT completed SHAHZAD Rivas[address] [place], [address], [facility] 07/29/2023 11:19:29 024 [facility]DEBRIDEMENT [facility] 07/03/2023 09:12:49 024 CallusDEBRIDEMENT completed [place], [address], [facility] 05/22/2023 10:06:43 024 CallusDEBRIDEMENT completed Wagner Duff DPM [address] [place], [address], [facility] 04/17/2023 11:51:08 023 CallusDEBRIDEMENT completed Wagner Duff DPM [address] [place], [address], [facility] - [facility] 03/04/2023 10:44:45 023 CallusDEBRIDEMENT completed Diya Minor [place], [place] - [facility] 01/13/2023 19:31:21 023 CallusDEBRIDEMENT completed Wagner Duff DPM [address] [place], [address], [facility] - [facility] 12/03/2022 11:03:00 023 CallusDEBRIDEMENT completed Wagner Duff DPM [address] [place], [address], [facility] - [facility] 10/22/2022 13:24:20 023 CallusDEBRIDEMENT completed Wagner Duff DPM [address] [place], [address], [facility] - [facility] 09/10/2022 13:50:37 023 Partial Nail Avulsion with Phenol Matrixectomy Dr. Mayo Ibrahim DPM [address] [place], [address], [facility] - [facility] 07/03/2022 14:52:32 023 CallusDEBRIDEMENT completed Pradip Ibrahim DPM [address] [place], [address], [facility] - [facility] 05/29/2022 10:48:10 023 CallusDEBRIDEMENT completed Pradip Ibrahim DPM [address] [place], [address], [facility] - [facility] 04/26/2022 10:27:42 022 Routine Foot Care completed Pradip Ibrahim DPM [address] [place], [address], [place] - [facility] 03/04/2022 14:23:10 Imaging Results None recorded. Procedure Notes None recorded. Medical Equipment None Reported. Allergies Allergen ID Allergen Name Allergen Category Reaction Reaction Severity Criticality Documentation Date Start Date Code Code System Note Provider Name and Address Organization Details Recorded Time 89 adhesive tape environme nt,medica tion Not available Not available Not available 02/04/2022 Debbie Frey null, [facility] 2 14:10:30 90 aspirin medicatio n Not available Not available Not available 02/04/2022 1191 RxNorm Debbie Tk null, [facility] 2 14:10:38 91 acetamino phen / hydrocodo ne medicatio n Not available Not available Not available 02/04/2022 96707 2 RxNorm Debbie Tk null, [facility] 2 14:10:47 92 acetamino phen / hydrocodo ne medicatio n Not available Not available Not available 02/04/2022 21066 2 RxNorm Debbie Tk null, [facility] 2 14:10:57 Medications Name Sig Start Date Stop Date Status Note LastModified by Organization Details LastModified Time celecoxib 200 mg capsule TAKE 1 CAPSULE BY MOUTH TWICE DAILY active Not Available Not Available No t Available cyclobenzapr ine 10 mg tablet active Not Available Not Available Not Available ketoconazole 2 % shampoo WASH FACE 2-3 TIMES A WEEK. LATHER AND SIT FOR SEVERAL MINUTES BEFORE RINSING active Not Available Not Available No t Available clindamycin HCl 300 mg capsule TAKE 1 CAPSULE BY MOUTH THREE TIMES DAILY active Not Available Not Available [...] Not Available Not Available No t Available doxycycline monohydrate 100 mg capsule TAKE 1 CAPSULE BY MOUTH TWICE DAILY FOR 1 MONTH. TAKE WITH NON DAIRY FOOD AND WATER. SUPPLEMENT WITH PROBIOTIC active Not Available Not Available No t Available esomeprazole magnesium 40 mg capsule,jaiden yed release TAKE 1 CAPSULE BY MOUTH EVERY DAY active Not Available Not Available No t Available prednisone 50 mg tablet TAKE 1 TABLET BY MOUTH EVERY DAY active Not Available Not Available No t Available metronidazol e 0.75 % topical cream APPLY TOPICALLY TO THE AFFECTED AREA OF FACE 1 TO 2 TIMES DAILY active Not Available Not Available Not Available docusate sodium 100 mg capsule TAKE [...] Encounter Closed Date Diagnosis/Indication Diagnosis SNOMED-CT Code 32219 Wagner Duff DPM [place] [facility] [address] [place] [address] 09/16/2023 09:59:27 09/17/2023 12:30:15 Foot callus [id number] Pain in right foot [address] [id number] 7 Acquired h allux limitus of right great toe 77363841640489 00 Acquired h allux limitus of left great toe 53060531706777 09 Health Concerns Section Related Observation LastModified by Organization Detai ls LastModified Time None Recorded Concern Status LastModified by Organization Details LastModified Time None Recorded Payers Encounter Date Sequence Insurance Name Policy Number Policy Rubin Covered Member ID Rubin Member ID Guarantor Name 09/16/2023 1 [facility] (HMO) [id number] 1 Jeny Carter [id number] Jeny Carter Notes Date Note Type Note Provider Name and Address Organization Details Recorded Time 09/16/2023 text/html HPI Notes: Patient is a 38 year old female established patient who presents today for a recheck of a painful callus to both feet in addition to dispensing new custom inserts. The patient mentions that while she has noticed symptom relief with inserts in the past, with being more active with a new toddler at home she has noticed an increase in symptoms and would like to discuss surgery at this time. Wagner Duff DPM [address] [place], [address], [facility] - [facility] 09/16/2023 10:23:58 OBGyn Episode No OBEpisode recorded.
--- OUTSIDE RECORDS SUMMARY | 2023-09-23 11:26 | XMS_ITS | Data Portability ---
Author Organization [place] - [facility], [employer] Address [address] [place] [address] Assessment Encounter Date Assessment Date Assessment LastModified by Organization Details LastModified Time 05/22/2023 05/22/2023 Informed the patient of her diagnosis as detailed down below. Of note the patient has had a successful delivery and the patient will be working with back and hip specialists for evaluation of significant pain first prior to proceeding with surgical correction of her hallux limitus. The patient was scanned for new custom inserts today. Regarding the patient's foot pain I did [...] complications and bone healing complications. Not available 05/22/2023 10:13:27 06/10/2023 06/10/2023 Patient presents for orthotics worm picker. Discussed instructions and dispensed instruction sheet to patient. Orthotics trimmed to properly fit shoes. Re check in approximately 2 weeks with provider. Please see prior clinician note for original encounter documentation and diagnosis. [email or web address] Not available 06/10/2023 16:21:03 07/03/2023 07/03/2023 Informed the patient of her [...] bone healing complications. Not available 07/03/2023 09:55:12 07/29/2023 07/29/2023 Informed the patient of her [...] bone healing complications. Not available 07/29/2023 11:19:59 09/16/2023 09/16/2023 Informed the patient of her [...] Time Details Appointments Office Visit 2023 08:45A M Wagner Duff Not available Not available Not available [...] Active 05/14/19 22 Ingrowing nail; Original Code: 8653195882 Original Codesystem: SNOMED CT Classifi cation: Medical Con firmation Status: Confirmed Not Available [facility] 06/03/2022 09:15:41 Acquired deformity of ankle AND/OR foot Active 05/24/19 20 Acquired deformity of ankle AND/OR foot; Original Code: [id number] O riginal Codesystem: SNOMED CT Classifi cation: Medical Con firmation Status: Confirmed Not Available [facility] 06/03/2022 09:15:41 Acquired hallux rigidus Active 11/17/19 17 Acquired hallux rigidus; Original Code: 28793430 Or iginal Codesystem: SNOMED CT Classifi cation: Medical Con firmation Status: Confirmed Not Available [facility] 06/03/2022 09:15:41 Problem Notes None recorded. Procedures Surgical History Date Name Laterality Status Provider Name and Address Organization Details Recorded Time 024 CallusDEBRIDEMENT completed Wagner Duff DPM [address] [place], [address], [facility] 09/16/2023 10:19:50 024 CallusDEBRIDEMENT completed Wagner Duff DPM [address] [place], [address], [facility] 07/29/2023 11:19:29 024 CallusDEBRIDEMENT completed CARMEN Guy - [facility] 07/03/2023 09:12:49 024 CallusDEBRIDEMENT completed Wagner Duff DPM [address] [place], [address], [facility] - [facility] 05/22/2023 10:06:43 024 CallusDEBRIDEMENT completed Wagner Duff DPM [address] [place], [address], [facility] - [facility] 04/17/2023 11:51:08 023 CallusDEBRIDEMENT completed Wagner Duff DPM [address] [place], [address], [facility] - [facility] 03/04/2023 10:44:45 023 CallusDEBRIDEMENT completed Diya bell [place] - [facility] 01/13/2023 19:31:21 023 CallusDEBRIDEMENT completed Wagner Duff DPM [address] [place], [address], [facility] - [facility] 12/03/2022 11:03:00 023 CallusDEBRIDEMENT completed Wagner Duff DPM [address] [place], [address], [facility] - [facility] 10/22/2022 13:24:20 023 CallusDEBRIDEMENT completed Wagner Duff DPM [address] [place], [address], [facility] - [facility] 09/10/2022 13:50:37 023 Partial Nail Avulsion with Phenol Matrixectomy Dr. Mayo Ibrahim, SHAHZAD [address] [place], [address], [facility] - [facility] 07/03/2022 14:52:32 023 CallusDEBRIDEMENT completed Pradip Ibrahim, SHAHZAD [address] [place], [address], [facility] - [facility] 05/29/2022 10:48:10 023 CallusDEBRIDEMENT completed Pradip Ibrahim DPM [address] [place], [address], [facility] 04/26/2022 10:27:42 022 Routine Foot Care completed Pradip Ibrahim DPM [address] [place], [address], [facility] 03/04/2022 14:23:10 Imaging Results None recorded. Procedure Notes None recorded. Medical Equipment None Reported. Allergies Allergen ID Allergen Name Allergen Category Reaction Reaction Severity Criticality Documentation Date Start Date Code Code System Note Provider Name and Address Organization Details Recorded Time 89 adhesive tape environme nt,medica tion Not available Not available Not available 02/04/2022 Debbie bell [facility] 2 14:10:30 90 aspirin medicatio n Not available Not available Not available 02/04/2022 1191 RxNorm Debbie bell [facility] 2 14:10:38 91 acetamino phen / hydrocodo ne medicatio n Not available Not available Not available 02/04/202298947 2 RxNorm Debbie bell [facility] 2 14:10:47 92 acetamino phen / hydrocodo ne medicatio n Not available Not available Not available 02/04/2022 40130 2 RxNorm Debbie bell [facility] 14:10:57 Medications Name Sig Start Date Stop [...] Encounter Closed Date Diagnosis/Indication Diagnosis SNOMED-CT Code 107 Pradip Ibrahim DPM [facility] [address] [place] [address] 02/04/2022 17:16:36 02/04/2022 17:51:52 Ingrowing nail 876616175 973 Pradip Ibrahim DPM [facility] [address] [place] [address] 03/04/2022 14:19:34 03/04/2022 16:18:18 Corns and callus [id number] [facility]2 [facility] [address] [place] [address] 04/24/2022 10:38:45 04/28/2022 09:29:51 Foot callus 122442551 Pain in right foot 36848 [id number] Pradip Ibrahim [facility] Office [address] [place] [address] 05/29/2022 10:29:19 05/29/2022 12:57:25 Foot callus 006856609 Pain in right foot 05867 [id number] [id number] Wagner Duff [facility] Office [address] [place] [address] 06/06/2022 09:47:44 06/09/2022 11:02:03 Foot callus 739156975 Pain in right foot 28491 [id number] 7 4430 Pradip Ibrahim, [facility] Office [address] [place] [address] 07/03/2022 09:59:11 07/07/2022 11:20:28 Pain in right foot 46591579253553 7 Ingrowing toenail 099980 009 4768 Wagner Duff [facility] Office [address] [place] [address] 07/16/2022 10:00:19 07/17/2022 09:45:06 Foot callus 093393664 Pain in right foot 55351 402877788 7 Ingrowing nail 813450246 5215 Wagner Duff [facility] Office [address] [place] [address] 07/30/2022 10:12:50 07/31/2022 09:23:23 Ingrowing nail 874219658 Foot callus 031267134 Pain in right foot 54258 [id number] 7 6393 Wagner Duff [facility] Office [address] [place] [address] 09/10/2022 11:57:30 09/11/2022 11:04:35 Foot callus 733770640 Pain in right foot 09578 548140023 7 Acquired h allux limitus of right great toe 69644800631270 00 Acquired h allux limitus of left great toe 67180033426046 09 7506 Wagner Duff [facility] Office [address] [place] [address] 10/22/2022 11:36:52 10/23/2022 09:43:08 Foot callus 930126124 Pain in right foot 30356 980856360 7 Acquired h allux limitus of right great toe 45031086014405 00 Acquired h allux limitus of left great toe 87087138914220 09 8662 Wagner Duff [facility] Office [address] [place] [address] 12/03/2022 10:56:32 12/04/2022 11:02:24 Foot callus 717329205 Pain in right foot 40349 046925797 7 Acquired h allux limitus of right great toe 63729113592664 00 Acquired h allux limitus of left great toe 93829376713120 09 9853 Wagner Duff [facility] Office [address] [place] [address] 01/14/2023 10:34:30 01/14/2023 13:24:13 Foot callus 341683985 Pain in right foot 86232 157124947 7 Acquired h allux limitus of right great toe 35316163130477 00 Acquired h allux limitus of left great toe 90050176545035 09 [id number] Wagner Duff [facility] Office [address] [place] [address] 03/04/2023 10:37:53 03/04/2023 17:55:56 Foot callus 021395609 Pain in right foot 55420 599723000 7 Acquired h allux limitus of right great toe 54704636840716 00 Acquired h allux limitus of left great toe 90414078094505 09 [id number] Wagner Duff [facility] Office [address] [place] [address] 04/17/2023 11:29:27 04/20/2023 09:46:11 Foot callus 571885954 Pain in right foot 38837 196123501 7 Acquired h allux limitus of right great toe 32261081868317 00 Acquired h allux limitus of left great toe 05788781355003 09 [id number] Wagner Duff [facility] Office [address] [place] [address] 05/22/2023 09:00:47 05/22/2023 15:28:14 Foot callus 919261821 Pain in right foot 57718 206114513 7 Acquired h allux limitus of right great toe 91535733313024 00 Acquired h allux limitus of left great toe 84130153743536 09 [id number] Wagner Duff [facility] [address] [place] [address] 06/10/2023 16:15:55 06/11/2023 09:32:36 Pain in left foot 97554163689476 7 Pain in right foot 14131 [id number] 7 [id number] Wagner Duff [facility] [address] [place] [address] 07/03/2023 09:04:43 07/06/2023 10:17:19 Foot callus 457054458 Pain in right foot 50304 645335214 7 Acquired h allux limitus of right great toe 12671002726817 00 Acquired h allux limitus of left great toe 05025718042933 09 [id number] Wagner Duff [facility] [address] [place] [address] 07/29/2023 09:33:09 07/29/2023 16:01:57 Foot callus 367467381 Pain in right foot 87140 667794937 7 Acquired h allux limitus of right great toe 15442604871094 00 Acquired h allux limitus of left great toe 43867408929972 09 [id number] Wagner Duff [facility] [address] [place] [address] 09/16/2023 09:59:27 09/17/2023 12:30:15 Foot callus 459382096 Pain in right foot 52420 546693758 7 Acquired h allux limitus of right great toe 32484075653430 00 Acquired h allux limitus of left great toe 68840509355570 09 Health Concerns Section Related Observation LastModified by Organization Tyler kennedy LastModified Time None Recorded Concern Status LastModified by Organization Details LastModified Time None Recorded Advance Directives Directive None Recorded Payers Encounter Date Sequence Insurance Name Policy Number Policy Rubin Covered Member ID Rubin Member ID Guarantor Name 05/22/2023 1 [employer] - INDIVIDUAL AND FAMILY (O) [id number] 1 Jeny Cornejo Drivdahl [id number] Jeny Cornejo Drivdahl 06/10/2023 1 [employer] - INDIVIDUAL AND FAMILY (O) [id number] 1 Jeny Cornejo Drivdahl [id number] Jeny Cornejo Drivdahl 07/03/2023 1 [employer] - INDIVIDUAL AND FAMILY (O) [id number] 1 Jeny Cornejo Drivdahl [id number] Jeny Cornejo Drivdahl 07/29/2023 1 [employer] - INDIVIDUAL AND FAMILY (O) [id number] 1 Jeny Cornejo Drivdahl [id number] Jeny Cornejo Drivdahl 09/16/2023 1 [employer] - INDIVIDUAL AND FAMILY (O) [id number] 1 Jeny Cornejo Drivdahl [id number] Jeny Cornejo Drivdahl Notes Date Note Type Note Provider Name and Address Organization Details Recorded Time 05/22/2023 text/html HPI Notes: Patient is a 37 year old female established patient who presents today for a recheck of a painful callus to both feet in addition to inquiring about new custom inserts at this time. Wagner Duff DPM [address] [place], [address], [facility] 05/22/2023 10:13:31 07/03/2023 text/html HPI Notes: Patient is a [...] from her hips. Wagner Duff DPM [address] [place], [address], [facility] 07/03/2023 09:55:15 07/29/2023 text/html HPI Notes: Patient is a [...] from her hips. Wagner Duff DPM [address] [place], [address], [facility] 07/29/2023 11:20:03 09/16/2023 text/html HPI Notes: Patient is a [...] this time. Wagner Duff DPM [address] [place], [address], [facility] 09/16/2023 10:23:58 OBGyn Episode No OBEpisode recorded.
--- OUTSIDE RECORDS SUMMARY | 2023-09-23 11:26 | XMS_ITS | Continuity of Care Document ---
Author Organization [place] - [facility], [place] [facility] Address [address] [place] [address] [address] [place] [address] Assessment Encounter Date Assessment Date Assessment LastModified [...] Active 05/14/19 22 Ingrowing nail; Original Code: 8300528613 Original Codesystem: SNOMED CT Classifi cation: Medical Con firmation Status: Confirmed Not Available [facility] 06/03/2022 09:15:41 Acquired deformity of ankle AND/OR foot Active 05/24/19 20 Acquired deformity of ankle AND/OR foot; Original Code: 756349329 O riginal Codesystem: SNOMED CT Classifi cation: Medical Con firmation Status: Confirmed Not Available [facility] 06/03/2022 09:15:41 Acquired hallux rigidus Active 11/17/19 17 Acquired hallux rigidus; Original Code: 65353201 Or iginal Codesystem: SNOMED CT Classifi cation: Medical Con firmation Status: Confirmed Not Available [facility] 06/03/2022 09:15:41 Problem Notes None recorded. Procedures Surgical History Date Name Laterality Status Provider Name and Address Organization Details Recorded Time 024 CallusDEBRIDEMENT [place], [address], [facility] 09/16/2023 10:19:50 024 CallusDEBRIDEMENT [place], [address], [facility] 07/29/2023 11:19:29 024 CallusDEBRIDEMENT completed Diya Minor [facility] 07/03/2023 09:12:49 024 CallusDEBRIDEMENT [place], [address], [facility] 05/22/2023 10:06:43 024 CallusDEBRIDEMENT completed Wagner Duff DPM [address] [place], [address], [facility] 04/17/2023 11:51:08 023 CallusDEBRIDEMENT completed Wagner Duff DPM [address] [place], [address], [facility] 03/04/2023 10:44:45 023 CallusDEBRIDEMENT completed Diya Minor [facility] 01/13/2023 19:31:21 023 CallusDEBRIDEMENT completed Wagner Duff DPM [address] [place], [address], [facility] 12/03/2022 11:03:00 023 CallusDEBRIDEMENT completed Wagner Duff DPM [address] [place] [address], [address], [facility] 10/22/2022 13:24:20 023 CallusDEBRIDEMENT completed Wagner Duff DPM [address] [place] [address], [facility] 09/10/2022 13:50:37 023 Partial Nail Avulsion with Phenol Matrixectomy Dr. Huber completed Pradip Ibrahim DPM [address] [place] [address], [address], [facility] 07/03/2022 14:52:32 023 CallusDEBRIDEMENT completed Pradip Ibrahim DPM [place] [facility] [address], [facility] 05/29/2022 10:48:10 023 CallusDEBRIDEMENT completed SHAHZAD Sampson [facility] [address], [facility] 04/26/2022 10:27:42 022 Routine Foot Care completed Pradip Ibrahim DPM [address] [facility] [address] 03/04/2022 14:23:10 Imaging Results None recorded. Procedure Notes None recorded. Medical Equipment None Reported. Allergies Allergen ID Allergen Name Allergen Category Reaction Reaction Severity Criticality Documentation Date Start Date Code Code System Note Provider Name and Address Organization Details Recorded Time 89 adhesive tape environme nt,medica tion Not available Not available Not available 02/04/2022 Debbie bell, [place] - [facility] 2 14:10:30 90 aspirin medicatio n Not available Not available Not available 02/04/2022 1191 Willi bell, [place] - [facility] 2 14:10:38 91 acetamino phen / hydrocodo ne medicatio n Not available Not available Not available 02/04/2022 71447 2 RxNoanahi bell, [place] - [facility] 2 14:10:47 92 acetamino phen / hydrocodo ne medicatio n Not available Not available Not available 02/04/2022 00985 2 Willi bell, [place] - [facility] 2 14:10:57 [...] Encounter Closed Date Diagnosis/Indication Diagnosis SNOMED-CT Code [id number] Wagner Duff DPM [place] [facility] [address] [place] [address] 06/10/2023 16:15:55 06/11/2023 09:32:36 Pain in left foot 44348678599341 7 Pain in right foot 45773 435011825 7 [id number] Wagner Duff DPM [place] [facility] [address] [place] [address] 07/03/2023 09:04:43 07/06/2023 10:17:19 Foot callus 268456073 Pain in right foot 43658 146530941 7 Acquired h allux limitus of right great toe 54075948831144 00 Acquired h allux limitus of left great toe 21998649952860 09 Health Concerns Section Related Observation LastModified by Organization Detai ls LastModified Time None Recorded Concern Status LastModified by Organization Details LastModified Time None Recorded Payers Encounter Date Sequence Insurance Name Policy Number Policy Rubin Covered Member ID Rubin Member ID Guarantor Name 07/03/2023 1 [facility] - INDIVIDUAL AND FAMILY (HMO) [id number] 1 Jeny Carter [id number] Jeny Carter Notes Date Note Type Note [...] from her hips. Wagner Duff DPM [address] [place], [address], [facility] - [facility] 07/03/2023 09:55:15 OBGyn Episode No OBEpisode recorded.
--- OUTSIDE RECORDS SUMMARY | 2023-09-23 11:26 | XMS_ITS | Continuity of Care Document ---
Author Organization [place] - [facility] [place] [facility] Address [address] [place] [address] [address] [address] Assessment Encounter Date Assessment Date Assessment LastModified [...] Active 05/14/19 22 Ingrowing nail; Original Code: 4161151774 Original Codesystem: SNOMED CT Classifi cation: Medical Con firmation Status: Confirmed Not Available [facility] 06/03/2022 09:15:41 Acquired deformity of ankle AND/OR foot Active 05/24/19 20 Acquired deformity of ankle AND/OR foot; Original Code: 568149960 O riginal Codesystem: SNOMED CT Classifi cation: Medical Con firmation Status: Confirmed Not Available [facility] 06/03/2022 09:15:41 Acquired hallux rigidus Active 11/17/19 17 Acquired hallux rigidus; Original Code: 27212593 Or iginal Codesystem: SNOMED CT Classifi cation: Medical Con firmation Status: Confirmed Not Available [facility] 06/03/2022 09:15:41 Problem Notes None recorded. Procedures Surgical History Date Name Laterality Status Provider Name and Address Organization Details Recorded Time 024 CallusDEBRIDEMENT [place], [address], [facility] 09/16/2023 10:19:50 024 CallusDEBRIDEMENT [place], [address], [facility] 07/29/2023 11:19:29 024 CallusDEBRIDEMENT completed Diya Minor [facility] 07/03/2023 09:12:49 024 CallusDEBRIDEMENT [place], [address], [facility] 05/22/2023 10:06:43 024 CallusDEBRIDEMENT completed Wagner Duff DPM [address] [place], [address], [facility] 04/17/2023 11:51:08 023 CallusDEBRIDEMENT completed Wagner Duff DPM [address] [place], [address], [facility] 03/04/2023 10:44:45 023 CallusDEBRIDEMENT completed Diya Minor [facility] 01/13/2023 19:31:21 023 CallusDEBRIDEMENT completed Wagner Duff DPM [address] [place], [address], [facility] 12/03/2022 11:03:00 023 CallusDEBRIDEMENT completed Wagner Duff DPM [address] [place] [address], [address], [facility] 10/22/2022 13:24:20 023 CallusDEBRIDEMENT completed Wagner Duff DPM [address] [place] [address], [facility] 09/10/2022 13:50:37 023 Partial Nail Avulsion with Phenol Matrixectomy Dr. Huber completed Pradip Ibrahim DPM [address] [place] [address], [address], [facility] 07/03/2022 14:52:32 023 CallusDEBRIDEMENT completed Pradip Ibrahim DPM [place] [facility] [address], [facility] 05/29/2022 10:48:10 023 CallusDEBRIDEMENT completed SHAHZAD Sampson [facility] [address], [facility] 04/26/2022 10:27:42 022 Routine Foot Care completed Pradip Ibrahim DPM [address] [facility] [address] 03/04/2022 14:23:10 [...] Not available Not available Not available 02/04/2022 96009 2 RxNoanahi bell, [place] - [facility] 2 14:10:47 92 acetamino phen / hydrocodo ne medicatio n Not available Not available Not available 02/04/2022 78676 2 Willi bell, [place] - [facility] [...] Encounter Closed Date Diagnosis/Indication Diagnosis SNOMED-CT Code [id number] Wagner Duff DPM [place] [facility] [address] [place] [address] 07/03/2023 09:04:43 07/06/2023 10:17:19 Foot callus 734577021 Pain in right foot 90270 317195974 7 Acquired h allux limitus of right great toe 05386116326640 00 Acquired h allux limitus of left great toe 46874474179721 09 [id number] Wagner Duff DPM [place] [facility] [address] [place] [address] 07/29/2023 09:33:09 07/29/2023 16:01:57 Foot callus 669388948 Pain in right foot 68770 396265231 7 Acquired h allux limitus of right great toe 91388276782677 00 Acquired h allux limitus of left great toe 15132505936674 09 Health Concerns Section Related Observation LastModified by Organization Detai ls LastModified Time None Recorded Concern Status LastModified by Organization Details LastModified Time None Recorded Payers Encounter Date Sequence Insurance Name Policy Number Policy Rubin Covered Member ID Rubin Member ID Guarantor Name 07/29/2023 1 [facility] - INDIVIDUAL AND FAMILY (HMO) [id number] 1 Jeny Carter [id number] Jeny Carter Notes Date Note Type Note [...] radiating from her hips. Wagner Duff DPM [address] [place] [address], [address], [place] - [facility] 07/29/2023 11:20:03 OBGyn Episode No OBEpisode recorded.
--- OUTSIDE RECORDS SUMMARY | 2023-09-23 11:27 | XMS_ITS | Referral Summary ---
Author Organization [place] Address [address] [place] [address] Care Team Providers Care Jewelry Consultant Name Role Phone No Ref-Primary, Physician Primary [...] ABSTRACT HIV (09/03/2022 12:06 PM CDT) Pathologist [facility] HIV 1&2 EXT Non-Reacti ve [facility] Comment:Negative Blood 09/03/2022 12:0 6 PM CDT Narrative [facility] - 09/03/2022 12:06 PM CDT [facility] RES[facility] Provider Outside LAB - HIM EXTERNAL R ESULT [facility] [address] [place] [address], [facility] [phone] * Hepatitis C (HIM External Result) (09/03/2022 12:06 PM CDT) Hep C HIM See Scanned Document [facility] Comment:Negative 09/03/2022 12:0 6 PM CDT Narrative [facility] - 09/03/2022 12:[address] [facility] RESULT Provider Outside LAB - HIM EXTERNAL R ESULT [facility] [address] [place], [place] [address] [phone] from Last 3 Months or Most Recently Relevant to Health Maintenance Care Teams Jewelry Consultant Relationship Specialty Start Date End Date No Ref-Primary, Physician PCP - General 03/07/22 System, Provider Not In Clinic 03/07/22
--- OUTSIDE RECORDS SUMMARY | 2023-09-23 11:27 | XMS_ITS | Clinical Summary ---
Author Organization [employer] [facility] Address [place], [place] [address] Care Team Providers Care Hot Box Operator Name Role Phone David Baum MD Primary [...] Vag Epidur al My Lentz pach Delivery Location:[place] Comments:Amniotomy and pit needed Last Filed Vital [...] 72.6 kg (160 lb) 02/28/2022 9:51 PM COBOL APPLICATION DEVELOPER Height 170.2 cm (5' 7) 09/19/2022 6:12 PM CDT Body Mass Index 25.06 02/28/2022 9:51 PM COBOL APPLICATION DEVELOPER Plan of Treatment Health Maintenance Due Date [...] 16 Negative Negative 01/31/2021 3:09 PM CDT [facility] TYPE 18 Negative Negative 01/31/2021 3:09 PM CDT [facility] OTHER HIGH RISK TYPES Negative Negative 01/31/2021 3:09 PM CDT [facility] Other (Cervical/Vagina l) 01/29/2021 12:00 PM CDT 01/30/2021 9:33 AM CDT Narrative [facility] - 01/31/2021 3:09 PM CDT HPV types 16, 18, 31, 33, 35, 39, 45, 51, 52, 56, 58, 59, 66 and 68 DNA were undetectable or below the pre-set threshold. Methodology: Cezar Karin 4800 HPV Test Akiko Govea MD MICROBIOLO GY [facility] [address] [place] [address], * ANTI HCV (07/09/2009 2:23 PM CDT) ANTI HCV Non-reacti ve [facility] Blood specimen (specimen) BLOOD SPECIMEN / Unknown 07/09/2009 2:23 PM CDT 07/09/2009 2:15 PM CDT Keri Grullon MD SEND OUTS [facility] INTERNAL ZIP [address] [place] [address] * ANTI HIV 1/2 (07/09/2009 2:23 PM CDT) ANTI HIV 1/2 Non-reacti [facility] Blood specimen (specimen) BLOOD SPECIMEN / Unknown 07/09/2009 2:23 PM CDT 07/09/2009 2:15 PM CDT Keri Grullon MD SEND OUTS [facility] INTERNAL ZIP [address] [place] [address] from Last 3 Months or Most Recently [...] 6:36 PM 05/29/2009 5:43 AM Care Teams Hot Box Operator Relationship Specialty Start Date End Date David Baum MD [address] [place] [address] PCP - General Family Practice 12/12/20
--- OUTSIDE RECORDS SUMMARY | 2023-09-23 11:27 | XMS_ITS | Clinical Summary ---
Author Organization [place] Address [address] [place] [address] Care Team Providers Care Industrial Economics Teacher Name Role Phone No Ref-Primary, Physician [...] PM CDT) HIV 1&2 EXT Non-Reacti ve [facility] Comment:Negative Blood 09/03/2022 12:[address] [facility] - 09/03/2022 12:06 PM CDT [facility] LAB RESULT Provider Outside LAB - HIM EXTERNAL R ESULT [facility] [address] [phone] * Hepatitis C (HIM External Result) (09/03/2022 12:06 PM CDT) Hep C HIM See Scanned Document [facility] Comment:Negative 09/03/2022 12:[address] [facility] - 09/03/2022 12:06 PM CDT [facility] RESULT Provider Outside LAB - HIM EXTERNAL R ESULT [facility] [address] [place] [address], [facility] [phone] from Last 3 Months or Most Recently Relevant to Health Maintenance Care Teams Industrial Economics Teacher Relationship Specialty Start Date End Date No Ref-Primary, Physician PCP - General 03/07/22 System, Provider Not In Clinic 03/07/22
== END 2023-09-21 09:31 | disposition home or self-care (01) ==
LOC: NFLDREF 09-23 11:22
PROVIDERS: PCP Family Medicine; Referring Provider Family Medicine; Visit Provider Family Medicine
DX: R30.0 Dysuria (principal)
CPT/HCPCS: 87086

== ENCOUNTER 2023-12-07 08:55 | Outpatient (CLI) | payer MEDICAID, SELFPAY ==
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
--- OUTSIDE RECORDS SUMMARY | 2023-12-07 09:04 | XMS_ITS | Continuity of Care Document ---
Author Organization [place] [facility] [place] [facility] Address [address] [place] [address] [address] [address] Assessment Encounter Date Assessment Date Assessment LastModified by Organization Details LastModified Time 10/21/2023 10/21/2023 Informed the patient of her diagnosis as detailed down below. Regarding the patient's foot pain I did [...] she would like to schedule for mid October or late November. Not available 10/21/2023 13:08:21 Plan of Treatment Reminders Order Date Submit Date Provider Last Modified By Organization Details Last Modified Time Details Appointments PREOP CONSENT 15 2023 10:30A M Not available Not available Not available [facility] 60 2023 11:00A M Not available Not available Not available POST OP 15 2023 09:30A M Not available Not available Not available Lab None recorded. Referral None recorded. Procedures None recorded. Surgeries None recorded. Imaging None recorded. Medication Orders None recorded. Patient TargetsNo targets recorded. Patient InstructionsNo instructions recorded. Reason for Referral None Reported. Problems Name Problem SNOMED Code Status Onset Date Resolution Date Notes Provider Name and Address Organization Details Recorded Time Ingrowing nail 319137950 Active 2021 Ingrowing nail; Original Code: 1629866857 Original Codesystem : SNOMED CT Classif ication: Medical Co nfirmation Status: Confirmed Not Available [facility] 3 09:15:41 Acquired deformity of ankle AND/OR foot 86317806 Active 2019 Acquired deformity of ankle AND/OR foot; Original Code: 558663844 Original Codesystem : SNOMED CT Classif ication: Medical Co nfirmation Status: Confirmed Not Available [facility] 3 09:15:41 Acquired hallux rigidus 1787569 Active 2016 Acquired hallux rigidus; Original Code: 82256522 O riginal Codesystem : SNOMED CT Classif ication: Medical Co nfirmation Status: Confirmed Not Available [facility] 3 09:15:41 Problem Notes None recorded. Procedures Surgical History Date Name Laterality Status Provider Name and Address Organization Details Recorded Time 024 CallusDEBRIDEMENT completed SHAHZAD [address]ivas[address] [place], [address], [facility] 11/11/2023 09:49:42 024 CallusDEBRIDEMENT completed SHAHZAD [address] [place], [address], [facility] 10/21/2023 13:06:15 024 CallusDEBRIDEMENT [place], [address], [facility] 09/16/2023 10:19:50 024 CallusDEBRIDEMENT completed Wagner Duff DPM [address] [place], [address], [facility] 07/29/2023 11:19:29 024 CallusDEBRIDEMENT completed [facility] 07/03/2023 09:12:49 024 CallusDEBRIDEMENT completed Wagner Duff DPM [address] [place], [address], [place] - [facility] 05/22/2023 10:06:43 024 CallusDEBRIDEMENT completed Wagner Duff DPM [address] [place], [address], [facility] - [facility] 04/17/2023 11:51:08 023 CallusDEBRIDEMENT completed Wagner Duff DPM [address] [place], [address], [facility] - [facility] 03/04/2023 10:44:45 023 CallusDEBRIDEMENT completed [place] - [facility] 01/13/2023 19:31:21 023 CallusDEBRIDEMENT completed Wagner Duff DPM [address] [place], [address], [facility] - [facility] 12/03/2022 11:03:00 023 CallusDEBRIDEMENT completed Wagner Duff DPM [address] [place], [address], [facility] - [facility] 10/22/2022 13:24:20 023 CallusDEBRIDEMENT completed Wagner Duff DPM [address] [place], [address], [facility] - [facility] 09/10/2022 13:50:37 023 Partial Nail Avulsion with Phenol Matrixectomy Dr. Huber completed Pradip Ibrahim DPM [address] [place], [address], [place] - [facility] 07/03/2022 14:52:32 023 CallusDEBRIDEMENT completed Pradip Ibrahim DPM [address] [place], [address], [facility] - [facility] 05/29/2022 10:48:10 023 CallusDEBRIDEMENT completed Pradip Ibrahim DPM [address] [place], [address], [facility] - [facility] 04/26/2022 10:27:42 022 Routine Foot Care completed Pradip Ibrahim DPM [address] [place], [address], [facility] 03/04/2022 14:23:10 Imaging Results None recorded. Procedure Notes None recorded. Medical Equipment None Reported. Allergies Allergen ID Allergen Name Allergen Category Reaction Reaction Severity Criticality Documentation Date Start Date Code Code System Note Provider Name and Address Organization Details Recorded Time 89 adhesive tape environme nt,medica tion Not available Not available Not available 02/04/2022 Debbie [facility]ar [facility] 2 14:10:30 90 aspirin medicatio n Not available Not available Not available 02/04/2022 1191 RxNorm Debbie Tk [facility], [facility] 2 14:10:38 91 acetamino phen / hydrocodo ne medicatio n Not available Not available Not available 02/04/2022 82055 2 RxNorm Debbie Tk null, [facility] 2 14:10:47 92 acetamino phen / hydrocodo ne medicatio n Not available Not available Not available 02/04/2022 66550 2 RxNorm Debbie Tk null, [facility] 2 14:10:57 [...] Encounter Closed Date Diagnosis/Indication Diagnosis SNOMED-CT Code Diagnosis ICD10 Code [id number] Wagner Duff DPM [place] [facility] [address] [place] [address] 10/21/2023 10:06:25 10/22/2023 10:04:03 Foot callus 952203561 L84 Pain in right foot 156[address] M79.671 Acquired h allux limitus of right great toe 8870921997 741761 M20.5X1 Acquired h allux limitus of left great toe 8572556848 936528 M20.5X2 Health Concerns Section Related Observation LastModified by Organization Detai ls LastModified Time None Recorded Concern Status LastModified by Organization Details LastModified Time None Recorded Payers Encounter Date Sequence Insurance Name Policy Number Policy Rubin Covered Member ID Rubin Member ID Guarantor Name 10/21/2023 1 [employer] - INDIVIDUAL AND FAMILY (HMO) [id number] 1 Jeny Carter [id number] Jeny Carter Notes Date Note Type Note Provider Name and Address Organization Details Recorded Time 10/21/2023 text/html HPI Notes: John garcia is a 38 year old female established patient who presents today for a recheck of a painful callus to both feet. The patient mentions that while she has noticed symptom relief with inserts in the past, with being more active with a new toddler at home she has noticed an increase in symptoms and endorses that she has substantially reduced her smoking now down to 2 cigarettes a day. Wagner Duff DPM [address] [place], [address], [facility] - [facility] 10/21/2023 13:08:24 OBGyn Episode No OBEpisode recorded.
--- OUTSIDE RECORDS SUMMARY | 2023-12-07 09:04 | XMS_ITS | Referral Summary ---
Author Organization [facility] Address [address] [place] [address] Care Team Providers Care Business Developer Name Role Phone No Ref-Primary, Physician Primary [...] ABSTRACT HIV (09/03/2022 12:06 PM CDT) Pathologist [facility] HIV 1&2 EXT Non-Reacti ve [facility] Comment:Negative Blood 09/03/2022 12:0 6 PM CDT Narrative [facility] - 09/03/2022 12:06 PM CDT [facility] RESULT Provider Outside LAB - HIM EXTERNAL R ESULT [facility] [address] [place] [address], [facility] [phone] * Hepatitis C (HIM External Result) (09/03/2022 12:06 PM CDT) Hep C HIM See Scanned Document [facility] Comment:Negative 09/03/2022 12:0 6 PM CDT Narrative [facility] - 09/03/2022 12:06 PM CDT [facility] RESULT Provider Outside LAB - HIM EXTERNAL R ESULT [facility] [address] [place], [place] [address] [phone] from Last 3 Months or Most Recently Relevant to Health Maintenance Care Teams Business Developer Relationship Specialty Start Date End Date No Ref-Primary, Physician PCP - General 03/07/22 System, Provider Not In Clinic 03/07/22
--- OUTSIDE RECORDS SUMMARY | 2023-12-07 09:04 | XMS_ITS | Clinical Summary ---
Author Organization [place] Address [address] [place] [address] Care Team Providers Care Production Graphic Designer Name Role Phone No Ref-Primary, Physician Primary [...] 1985 YEARLY PREVENTIVE VISIT 1985 PAP 2006 PHQ-2 (once per calendar year) 2023 COVID-19 Vaccine ( season) 2023 INFLUENZA VACCINE (#1) 2023 DTAP/TDAP/TD IMMUNIZATION (4 - Td or [...] PM CDT) HIV 1&2 EXT Non-Reacti ve [facility] Comment:Negative Blood 09/03/2022 12:0 6 PM CDT [facility] - 09/03/2022 12:06 PM CDT [facility] LAB RESULT Provider Outside LAB - HIM EXTERNAL R ESULT Performing Organization Address [facility]/ZIP Co de Phone Number [facility] [address] [phone] * Hepatitis C (HIM External Result) (09/03/2022 12:06 PM CDT) Hep C HIM See Scanned [facility] Comment:Negative 09/03/2022 12:0 6 PM CDT [facility] - 09/03/2022 12:06 PM CDT [facility] LAB RESULT Provider Outside LAB - HIM EXTERNAL R ESULT [facility] [address] [phone] from Last 3 Months or Most Recently Relevant to Health Maintenance Care Teams Production Graphic Designer Relationship Specialty Start Date End Date No Ref-Primary, Physician PCP - General 03/07/22 System, Provider Not In Clinic 03/07/22
== END 2023-12-07 08:56 | disposition home or self-care (01) ==
PROVIDERS: PCP Family Medicine; Visit Provider Family Medicine
DX: Z01.818 Encounter for other preprocedural examination (principal)
CPT/HCPCS: 80048; 80061; 85025

== ENCOUNTER 2024-06-29 16:01 | Outpatient (CLI) | payer MEDICAID, SELFPAY ==
--- NOTE | 2024-06-29 18:15 | MR_ITS ---
EXAM: MRI of the RIGHT HIP, without contrast CLINICAL HISTORY: Ongoing right hip pain. Trochanteric bursitis, right hip. Right lower extremity weakness COMPARISONS: . Plain radiographs 06/12/2023 and 07/23/2022. MRI 05/20/2019. TECHNICAL: MR sequences of the right hip: Axials: PD FS Axial oblique: PD Coronals: PD, T2 Coronal pelvis: T1 and STIR Sagittals: PD and T2 CONTRAST: None SEDATION: None FINDINGS: Pelvis osseous structures: Sacrum: No fracture or destructive osseous lesion is seen of the imaged portions of the sacrum. Sacroiliac joints: No convincing evidence of inflammatory sacroiliitis of the imaged portions of the sacroiliac joints. Pubic rami: Unremarkable. Symphysis pubis: There is no evidence of acute osteitis pubis. Labrum: Ill-defined partial-thickness undersurface tear and fraying of the anterosuperior and anterior portions of the right hip labrum, unchanged compared to previous MRI 05/20/2019. Hip joint: Physiologic amount of joint fluid. No chondral loss is seen although the cartilage is not optimally evaluated by this nonarthrogram study. No subchondral bone marrow edema or subchondral cystic change is seen. Proximal femur: No fracture, osseous stress injury, avascular necrosis, or suspicious bone marrow signal abnormality is seen. Acetabulum: No subchondral cysts, periacetabular ossicles or marrow edema. Coverage: Right lateral center edge (CE) angle measures approximately 35? correcting for coronal pelvic tilt, midline coronal series 5 image 13. Ligamentum teres: Unremarkable. Myotendinous structures: Gluteus abductors: The gluteus minimus and medius tendons are unremarkable. Rectus abdominis-adductor longus aponeurosis, adductors, and rectus abdominis: Unremarkable. Hamstrings: Unremarkable. Flexors: The iliopsoas and rectus femoris tendons are intact. Quadratus femoris muscle: Unremarkable. Piriformis muscle: Unremarkable. Gluteal aponeurotic fascia and IT band: Unremarkable. Pelvic soft tissues: Unremarkable. The lumbar spine including degenerative disc disease at L4-L5 is better evaluated by dedicated MRI of the lumbar spine 06/29/2024. IMPRESSION: 1. Ill-defined partial-thickness undersurface tear and fraying of the anterosuperior and anterior portions of the right hip labrum, unchanged compared to previous MRI 05/20/2019. No evidence of right hip chondral loss on this nonarthrogram study. No subchondral cystic change/subchondral edema-like signal. 2. The lumbar spine including degenerative disc disease at L4-L5 is better evaluated by dedicated MRI of the lumbar spine 06/29/2024. 3. No fracture, osseous stress injury, or tendinous pathology of the right hip. No MRI evidence of greater trochanteric bursitis. RCB Electronically signed on 06/30/2024 9:33:00 AM by Ralph Palmer M.D.
--- NOTE | 2024-06-29 19:00 | MR_ITS ---
EXAM:?MR LUMBAR SPINE WITHOUT CONTRAST CLINICAL INFORMATION: 38-year-old female with right lower extremity weakness and bilateral hip paresthesias/right hip bursitis. COMPARISON: 08/24/2020.?SEDATION:?None. TECHNICAL INFORMATION: Imaging was performed at [facility]. Sagittal and axial T1 / FSE T2, and sagittal STIR images were obtained through the lumbar spine. INTERPRETATION: L5-S1:?Mild disc desiccation with normal disc height. No herniation, stenosis or neural impingement. Unremarkable facet joints. L4-5: Severe degeneration with type I endplate discogenic marrow change and Schmorl's node. Left posterolateral 5 mm disc herniation impinges left L5 root and no central stenosis. Left facet hypertrophy and patent foramina. L3-4: Normal disc height, bulge abuts dural sac and no spinal stenosis or impingement. Unremarkable facet joints. A05-U2-D7-3: Normal disc height and annular margins. No spinal stenosis or impingement. T11-12: Disc desiccation and anterior spondylosis. Normal dorsal disc margin. Osseous Structures: Fat suppressed images are negative for acute or subacute fractures. Type I Modic endplate marrow change at anterior L4-5 and left posterior/inferior L5. Paraspinous Soft Tissues: No mass lesions. Conus, Cord and Cauda Equina: Normal position conus and no evidence of intradural mass or arachnoiditis. CONCLUSION: 1. Left L4-5, 5 mm AP disc herniation impinges left L5 root. 2. Moderate to advanced L4-5 disc degeneration with active type I Modic marrow changes. 3. No central canal stenosis. 4. L4-5 disc bulge. Electronically signed on 06/30/2024 4:48:00 PM by Kt Trevizo M.D.
== END 2024-06-29 16:02 | disposition home or self-care (01) ==
LOC: MRI 16:01
PROVIDERS: PCP Family Medicine; Visit Provider Physician Assistant
DX: M70.61 Trochanteric bursitis, right hip (principal); S73.191S Other sprain of right hip, sequela; M51.369 Other intervertebral disc degeneration, lumbar region without mention of lumbar back pain or lower extremity pain; M54.50 Low back pain, unspecified; M51.26 Other intervertebral disc displacement, lumbar region; M41.9 Scoliosis, unspecified; R29.898 Other symptoms and signs involving the musculoskeletal system
CPT/HCPCS: 72148; 73721

== ENCOUNTER 2025-01-24 15:37 | Outpatient (CLI) | payer MEDICAID, SELFPAY | END 2025-01-24 15:38 | disposition home or self-care (01) | PROVIDERS: PCP Family Medicine; Visit Provider Family Medicine | DX: Z13.9 Encounter for screening, unspecified (principal); R53.83 Other fatigue; R29.898 Other symptoms and signs involving the musculoskeletal system | CPT/HCPCS: 80048; 82784; 84443; 85025; 86038; 86231; 86258; 86364 ==